=== PATIENT | female | born 1940 | race Hispanic/Latino ===

== ENCOUNTER 2016-07-11 10:01 | Emergency (ER) | payer MEDICARE ==
[2016-07-11 10:02] VITALS: BMI 22.4
[2016-07-11 10:19] VITALS: PULSE 74; TEMP 98
--- NOTE | 2016-07-11 10:42 | ED PDOC ---
Arrival/HPI - General Chief Complaint: Female Genitourinary Time Seen by Provider: 07/11/16 10:30 Historian: Patient - History of Present Illness Narrative History of Present Illness (Text): 07/11/16 10:35 Sade Salguero is a 75 year old female, whose past medical history includes blood clots, DVT, Crohn's diseae, and a partial hysterectomy, who presents to the emergency department complaining of blood in urine this morning. Patient called PMD and spoke to Dr. Del Cid who told her to come to emergency department for evaluation. Patient notes that she had an INR on 12 days ago (13 of every month) which was normal except for low vitamin D. Patient denies any burning or pain during urination, or any other complaint at this time. PMD: Dr. Lema Time/Duration: 4-6 hours Symptom Course: Unchanged Activities at Onset: Rest Modifying Factors (Text): None Context: Home Past Medical History - Provider Review Nursing Documentation Reviewed: Yes - Infectious Disease Hx of Infectious Diseases: None - Tetanus Immunization Tetanus Immunization: Unknown - Reproductive Menopause: Yes - Cardiac Hx Hypertension: Yes - Pulmonary Hx Chronic Obstructive Pulmonary Disease (COPD): Yes - Neurological Hx Paralysis: No - Endocrine/Metabolic Hx Endocrine Disorders: No - Hematological/Oncological Hx Blood Transfusions: No Hx Blood Transfusion Reaction: (N/A) - Integumentary Other/Comment: 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 - Musculoskeletal/Rheumatological Hx Musculoskeletal Disorders: Yes Other/Comment: blood clots on both legs with filter 2009 - Gastrointestinal Hx Crohn's Disease: Yes - Psychiatric Hx Emotional Abuse: No Hx Physical Abuse: No Hx Substance Use: No - Surgical History Hx Cholecystectomy: Yes Hx Hysterectomy: Yes - Anesthesia Hx Anesthesia: Yes Hx Anesthesia Reactions: No Hx Malignant Hyperthermia: No - Suicidal Assessment Feels Threatened In Home Enviroment: No Family/Social History - Physician Review Nursing Documentation Reviewed: Yes Family/Social History: No Known Family HX Smoking Status: Light Smoker < 10 Cigarettes Daily Hx Alcohol Use: No (RARELY) Hx Substance Use: No Hx Substance Use Treatment: No Allergies/Home Meds Allergies/Adverse Reactions: Allergies No Known Allergies Allergy (Verified 07/11/16 10:19) Home Medications: Home Meds Medication Instructions Recorded Confirmed Warfarin [Coumadin] 2 mg PO DAILY 01/03/12 07/11/16 Colesevelam HCl [Welchol] 3 tab PO BID 08/24/14 07/11/16 Irbesartan [Avapro] 150 mg PO QAM 08/24/14 07/11/16 Calcium Carbonate/Vitamin D 1 tab PO DAILY 10/23/15 07/11/16 [Oyster Shell Calcium/Vitamin D 250 MG-125 Iu] Folic Acid 1 mg PO DAILY 10/23/15 07/11/16 Multivitamin [Multivitamins] 1 each PO DAILY 10/23/15 07/11/16 Warfarin [Coumadin] 3 mg PO QOTHERDAY 07/11/16 07/11/16 Review of Systems - Review of Systems Constitutional: absent: Fevers, Night Sweats Eyes: absent: Vision Changes ENT: absent: Hearing Changes Respiratory: absent: SOB Cardiovascular: absent: Chest Pain Gastrointestinal: absent: Abdominal Pain Genitourinary Female: Hematuria Musculoskeletal: absent: Back Pain, Neck Pain Skin: absent: Rash Neurological: absent: Headache, Dizziness Endocrine: absent: Diaphoresis Hemo/Lymphatic: absent: Easy Bleeding Psychiatric: absent: Depression Physical Exam Vital Signs Reviewed: Yes Vital Signs Temp Pulse Resp BP Pulse Ox 07/11/16 10:12 98 F 74 19 131/69 96 Temperature: Afebrile Blood Pressure: Normal Pulse: Regular Respiratory Rate: Normal Appearance: Positive for: Well-Appearing, Non-Toxic, Comfortable Pain Distress: None Mental Status: Positive for: Alert and Oriented X 3 - Systems Exam Head: Present: Atraumatic, Normocephalic Pupils: Present: PERRL Extroacular Muscles: Present: EOMI Conjunctiva: Present: Normal Mouth: Present: Moist Mucous Membranes Neck: Present: Normal Range of Motion Respiratory/Chest: Present: Clear to Auscultation, Good Air Exchange. No: Respiratory Distress, Accessory Muscle Use Cardiovascular: Present: Regular Rate and Rhythm, Normal S1, S2. No: Murmurs Abdomen: Present: Normal Bowel Sounds. No: Tenderness, Distention, Peritoneal Signs Back: Present: Normal Inspection Upper Extremity: Present: Normal Inspection. No: Cyanosis, Edema Lower Extremity: Present: Normal Inspection. No: Edema Neurological: Present: GCS=15, CN II-XII Intact, Speech Normal Skin: Present: Warm, Dry, Normal Color. No: Rashes Psychiatric: Present: Alert, Oriented x 3, Normal Insight, Normal Concentration Medical Decision Making ED Course and Treatment: 07/11/16 10:35 Impression: 75 year old female complaining of hematuria this morning. Differential Diagnosis included but are not limited to: Hematuria, secondary to UTI vs. Coumadin Toxicity Plan: -- Urine Culture, Urinalysis -- Labs -- Reassess and disposition Prior Visits: Notes and results from previous visits were reviewed. Patient last seen in the ED on 12/18/15 for shortness of breath that night. Patient was discharged home. Progress Notes: 07/11/16 11:23 Patient UA noted with Nitrate+ and Leuks. WBC normal. Considering hematuria will tx for uncomplicated cystitis with Keflex. INR level reviewed. Patient needs to follow up with her primary care doctor in 2-3days. Advised to return to the ED if symptoms worsen or any other concern. - Lab Interpretations Lab Results: 07/11/16 10:40 07/11/16 10:40 Lab Results 07/11/16 10:40: WBC 8.2, RBC 4.44, Hgb 14.4, Hct 42.1, MCV 94.8, MCH 32.4, MCHC 34.2, RDW 14.0, Plt Count 166, MPV 11.7 H, Gran % 66.2, Lymph % (Auto) 27.0, [place] % (Auto) 5.9, Eos % (Auto) 0.7 L, Baso % (Auto) 0.2, Gran # 5.43, Lymph # 2.2, [place] # 0.5, Eos # 0.1, Baso # 0.02, PT 20.8 H, INR 1.93 H, APTT 34.1 H, Sodium 139, Potassium 4.0, Chloride 103, Carbon Dioxide 27, Anion Gap 13, BUN 13 , Creatinine 0.7, Est GFR ( Amer) > 60, Est GFR (Non-Af Amer) > 60, Random Glucose 97, Calcium 9.8 07/11/16 10:30: Urine Color Yellow, Urine Appearance Slight-cloudy, Urine pH 6.0 , Ur Specific [place] 1.015, Urine Protein Negative, Urine Glucose (UA) Negative , Urine Ketones Negative, Urine Blood Large H, Urine Nitrate Positive H, Urine Bilirubin Negative, Urine Urobilinogen 0.2, Ur Leukocyte Esterase Small H, Urine RBC Tntc, Urine WBC 0 - 2, Ur Epithelial Cells 0 - 2, Urine Bacteria Mod I have reviewed the lab results: Yes Interpretation: Abnormal lab values (INR 1.93 on coumadin; UTI with blood, nitrates, and leuk) - Medication Orders Current Medication Orders: Discontinued Medications Cephalexin Monohydrate (Keflex) 500 mg PO STAT STA PRN Reason: Protocol Stop: 07/11/16 11:20 - Scribe Statement The provider has reviewed the documentation as recorded by the Bryon Erazo Provider Scribe Attestation: All medical record entries made by the Scribe were at my direction and personally dictated by me. I have reviewed the chart and agree that the record accurately reflects my personal performance of the history, physical exam, medical decision making, and the department course for this patient. I have also personally directed, reviewed, and agree with the discharge instructions and disposition. Disposition/Present on Arrival - Present on Arrival Any Indicators Present on Arrival: No History of DVT/PE: No History of Uncontrolled Diabetes: No Urinary Catheter: No History of Decub. Ulcer: No History Surgical Site Infection Following: None - Disposition Have Diagnosis and Disposition been Completed?: Yes Diagnosis: Hematuria Disposition: HOME/ ROUTINE Disposition Time: 11:25 Patient Plan: Discharge Patient Problems: Current Active Problems Problem Status Diagnosed Hematuria Acute Condition: IMPROVED Discharge Instructions (ExitCare): Acute Hematuria (DC) Additional Instructions: Ms. Salguero, thank you for letting us take care of you today. Your provider was Dr. Montes You were treated for Hematuria. The emergency medical care you received today was directed at your acute symptoms. If you were prescribed any medication, please fill it and take as directed. It may take several days for your symptoms to resolve. Return to the Emergency Department if your symptoms worsen, do not improve, or if you have any other problems. Please contact your doctor or call one of the physicians/clinics you have been referred to that are listed on the Patient Visit Information form that is included in your discharge packet. Bring any paperwork you were given at discharge with you along with any medications you are taking to your follow up visit. Our treatment cannot replace ongoing medical care by a primary care provider (PCP) outside of the emergency department. Thank you for allowing the [facility] team to be part of your care today. If you had an X-Ray or CT scan: A Radiologist will review the ED reading if any change in treatment is needed we will contact you. If you had a blood, urine, or wound culture: It will take several days for the results, if any change in treatment is needed we will contact you. If you had an STI test: It will take 48 hours for the results. Please call after 1 week if you have not heard back. Prescriptions: Cephalexin [Keflex] 500 mg PO BID #14 capsule Referrals: Christian Lema MD [Primary Care Provider] - Follow up with primary Forms: WORK NOTE
[2016-07-11 10:50] LABS: URINE BILIRUBIN NEGATIVE (NEGATIVE); URINE BLOOD LARGE (NEGATIVE); URINE GLUCOSE (UA) NEGATIVE (NEGATIVE); URINE KETONE NEGATIVE (NEGATIVE); URINE LEUKOCYTE ESTERASE SMALL Leu/uL (NEGATIVE); URINE PROTEIN NEGATIVE mg/dL (<30 mg/dL); URINE UROBILINOGEN 0.2 E.U./dL (<1 E.U./dL)
[2016-07-11 10:51] LABS: ADD MANUAL DIFF? NO
[2016-07-11 10:53] LABS: URINE APPEARANCE SLIGHT-CLOUDY (CLEAR); URINE COLOR YELLOW (YELLOW)
[2016-07-11 11:00] LABS: URINE EPITHELIAL CELLS 0 - 2 /hpf (0-5); URINE RBC TNTC /hpf (0-2); URINE WBC 0 - 2 /hpf (0-6)
[2016-07-11 11:01] LABS: URINE BACTERIA MOD (NEG)
[2016-07-11 11:03] LABS: BASO # 0.02 [, K/mm3] (0.0-2.0); BASO % 0.2 % (0.0-3.0); EOS # 0.1 (0.0-0.7); EOS % 0.7 % (1.5-5.0); GRAN # 5.43 (1.4-6.5); GRAN % 66.2 % (50.0-68.0); HEMATOCRIT 42.1 % (36.0-48.0); LYMPH # 2.2 (1.2-3.4); MEAN CELL VOLUME 94.8 fL (80.0-105.0); MEAN CORPUSCULAR HEMOGLOBIN 32.4 pg (25.0-35.0); MEAN CORPUSCULAR HGB CONC 34.2 g/dl (31.0-37.0); MEAN PLATELET VOLUME 11.7 fl (7.0-11.0); MONO # 0.5 (0.1-0.6); MONO % 5.9 % (1.0-6.0); PLATELET COUNT 166 [, 10^3/uL] (120.0-450.0); WHITE BLOOD COUNT 8.2 [, 10^3/ul] (4.5-11.0)
[2016-07-11 11:13] LABS: BLOOD UREA NITROGEN 13 mg/dL (7-21); CALCIUM 9.8 mg/dL (8.4-10.5); CARBON DIOXIDE 27 mmol/L (21-33); CHLORIDE 103 mmol/L (98-107); GFR AFRICAN-AMERICAN > 60; GLUCOSE,RANDOM 97 mg/dL (70-110); SODIUM 139 mmol/L (132-148)
[2016-07-11 11:14] LABS: INR 1.93 (0.93-1.08); PARTIAL THROMBOPLASTIN TIME 34.1 Seconds (23.7-30.8)
[2016-07-11 11:58] VITALS: BP 153/77; RESP 18; O2SAT 98
== END 2016-07-11 12:00 | disposition home or self-care (01) ==
LOC: ED 10:01
DX: R31.9 Hematuria, unspecified (principal); I10 Essential (primary) hypertension; Z86.718 Personal history of other venous thrombosis and embolism; Z72.0 Tobacco use

== ENCOUNTER 2016-09-15 08:56 | Day surgery (SDC) | payer MEDICARE ==
[2016-09-15 09:44] VITALS: RESP 18
[2016-09-15] MEDS ORDERED: Propofol 10 mg/ml Inj (20 ML) ONE (11:45)
[2016-09-15] MEDS ORDERED: Midazolam 2 MG/2 ML VIAL ONE (11:45)
[2016-09-15] MEDS ORDERED: Iohexol 240 (50 ml) ONE (11:48)
[2016-09-15] MEDS ORDERED: cefTRIAXone (Rocephin) 1 gm Inj ONE (11:51)
[2016-09-15] MEDS ORDERED: Sevoflurane - Inhalation Anesthetic Liq (250 ml) ONE (11:56)
[2016-09-15] MEDS ORDERED: Glycopyrrolate 0.2 mg/ml (2ml vial) ONE (12:11)
[2016-09-15] MEDS ORDERED: Neostigmine Methylsulfate 3mg/3ml Syringe IV ONE (12:11)
[2016-09-15] MEDS ORDERED: Lactated Ringer's 1,000 ML IV SCH (12:42)
[2016-09-15 13:16] VITALS: O2SAT 96
--- NOTE | 2016-09-15 13:23 | OP ---
PROCEDURE DATE: 09/15/2016 PREOPERATIVE DIAGNOSIS: Distal right ureteral calculus. POSTOPERATIVE DIAGNOSIS: Distal right ureteral calculus. PROCEDURE: Cystoscopy, right retrograde ureteropyelogram, right ureteroscopy with laser lithotripsy, insertion of right pigtail stent. SURGEON: Kalen Oliva M.D. ANESTHESIA: General endotracheal. DESCRIPTION OF OPERATION: After adequate general endotracheal anesthesia was given, the patient was placed in lithotomy, prepped and draped in the usual manner. A 22[place] cystourethroscope was intro duced under vision. The bladder showed no tumors, foreign bodies, or visible stones. She had some c ystitis cystica on the lining. ____ was obtained for culture and cytology. An acorn-tipped catheter was placed at the opening of the right ureteral orifice. Ureteropyelogram was carried out. There w as a filling defect in the distal ureter corresponding to the stone. The upper ureter had some kinki ng, but no filling defects were seen. At this point, the tip catheter was removed and an 0.035 Senso r wire was advanced up the right ureter easily up into the kidney. All of the contrast instilled was allowed to egress to empty the collecting system before the start of the ureteroscopy. The cystosco pe was removed. A 6-[place] short right semi-rigid ureteroscope was then introduced under direct visi on without the need for dilating the orifice. Just beyond the intramural portion of the ureter, the stone was seen. Using holmium laser at a setting of 6 and 6, it was fragmented into small pieces whi ch egressed out the orifice. Inspection of the rest of the ureter going up to the upper ureter was a ll normal. The ureteroscope was removed under vision. The ureter was fine. The cystoscope was rein troduced after backloading the Sensor wire on to the cystoscope and a 6-[place] 26 cm pigtail stent wa s advanced up the right ureter under fluoroscopic guidance. When properly placed, it coiled nicely i n the right renal pelvis and in the bladder. The bladder was drained. The cystoscope was removed. The patient was awakened and brought to recovery room in good condition. Kalen Oliva MD cc: [phone] TT: 09/15/2016 13:22:45 sn
[2016-09-15 13:52] VITALS: BMI 22.4
[2016-09-15 15:01] VITALS: BP 136/66; PULSE 70; TEMP 98
--- NOTE | 2016-09-15 15:03 | RAD ---
PROCEDURE: Fluoroscopy up to 1 hour HISTORY: RETROGRADE PYELOGRAM/LASER LITHOTRIPSY/STENT INSERTION (RIGHT) COMPARISON: TECHNIQUE: Fluoroscopy was provided in the operating room. 1 minutes and 43 seconds of fluoroscopy time were utilized. 11 images were obtained. FINDINGS: There is an irregular filling defect in the renal pelvis which could represent a clot. There is placement of a right ureteral stent. Procedure was performed by Dr. Oliva IMPRESSION: As above
== END 2016-09-15 14:55 | disposition home or self-care (01) ==
LOC: SDS 08:56
PROVIDERS: ATTEND Urology
DX: N20.1 Calculus of ureter (principal); I10 Essential (primary) hypertension; J43.9 Emphysema, unspecified; Z90.722 Acquired absence of ovaries, bilateral; K50.90 Crohn's disease, unspecified, without complications; B96.20 Unspecified Escherichia coli [E. coli] as the cause of diseases classified elsewhere
CPT/HCPCS: 36415; 52356; 76000; 85610; 87086; 88108; C1758; C2625; J0696; J2001; J2250; J2405; J2704; J2710; J3010; J7120 ×2; Q9966

== ENCOUNTER 2017-11-23 07:28 | Inpatient (IN) | payer MEDICARE ==
[2017-11-23 07:53] VITALS: BMI 22.6
--- NOTE | 2017-11-23 08:11 | ED PDOC ---
Arrival/HPI - General Chief Complaint: Dizziness/Lightheaded Time Seen by Provider: 11/23/17 07:30 Historian: Patient - History of Present Illness Narrative History of Present Illness (Text): 11/23/17 08:04 75 year old female, with a past medical history that includes DVTs on Coumadin, Crohn's diseae, and a partial hysterectomy, presents to the emergency department with dizziness and shortness of breath, for one week. Patient states that she feels the room spinning upon standing, and generalized faintness and dizziness while walking. Patient states she had episodes of vomiting about 10 days prior, which have resolved. Patient reports sensation of shortness of breath over past several days as well. Denies hemoptysis. Denies bloody or dark urine or stool. PMD: Dr. Lema 11/23/17 14:11 Time/Duration: 1 week Symptom Onset: Gradual Symptom Course: Unchanged Activities at Onset: Light Context: Standing (Dizziness upon standing), Home Past Medical History - Provider Review Nursing Documentation Reviewed: Yes - Infectious Disease Hx of Infectious Diseases: None - Tetanus Immunization Tetanus Immunization: Unknown - Reproductive Menopause: Yes - Cardiac Hx Pacemaker: No - Pulmonary Hx Chronic Obstructive Pulmonary Disease (COPD): Yes - Neurological Hx Paralysis: No - Endocrine/Metabolic Hx Endocrine Disorders: No - Hematological/Oncological Hx Blood Transfusions: No Hx Blood Transfusion Reaction: (N/A) - Integumentary Other/Comment: 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 - Musculoskeletal/Rheumatological Hx Musculoskeletal Disorders: Yes - Gastrointestinal Hx Crohn's Disease: Yes - Psychiatric Hx Emotional Abuse: No Hx Physical Abuse: No Hx Substance Use: No - Surgical History Hx Cholecystectomy: Yes Hx Hysterectomy: Yes - Anesthesia Hx Anesthesia Reactions: No Hx Malignant Hyperthermia: No - Suicidal Assessment Feels Threatened In Home Enviroment: No Family/Social History - Physician Review Nursing Documentation Reviewed: Yes Family/Social History: Neoplasm/Cancer Smoking Status: Light Smoker < 10 Cigarettes Daily Hx Alcohol Use: No (RARELY) Hx Substance Use: No Hx Substance Use Treatment: No Allergies/Home Meds Allergies/Adverse Reactions: Allergies No Known Allergies Allergy (Verified 11/23/17 07:42) Home Medications: Home Meds Medication Instructions Recorded Confirmed Warfarin [Coumadin] 2 mg PO DAILY 01/03/12 11/23/17 Colesevelam HCl [Welchol] 3 tab PO BID 08/24/14 11/23/17 Calcium Carbonate/Vitamin D 1 tab PO DAILY 10/23/15 11/23/17 [Oyster Shell Calcium/Vitamin D 250 MG-125 Iu] Folic Acid 1 mg PO DAILY 10/23/15 11/23/17 Multivitamin [Multivitamins] 1 cap PO DAILY 10/23/15 11/23/17 Warfarin [Coumadin] 3 mg PO Q2XW 07/11/16 11/23/17 Losartan [Cozaar] 50 mg PO DAILY 09/01/16 11/23/17 Review of Systems - Review of Systems Constitutional: Fatigue. absent: Fevers Eyes: absent: Vision Changes ENT: Rhinorrhea. absent: Hearing Changes Respiratory: SOB. absent: Cough, Wheezing Cardiovascular: MCKAY. absent: Chest Pain, Palpitations, Edema, Calf Pain Gastrointestinal: absent: Abdominal Pain Genitourinary Female: absent: Dysuria Musculoskeletal: absent: Back Pain, Neck Pain Skin: absent: Rash Neurological: Dizziness. absent: Focal Weakness, Gait Changes Physical Exam - Physical Exam Narrative Physical Exam (Text): Head: Atraumatic. Normocephalic. Eyes: PERRL. EOMI. Conjunctivae are not pale. ENT: Mucous membranes are moist and intact. Oropharynx is clear and symmetric. Neck: Supple. Full ROM. No JVD. No lymphadenopathy. Cardiovascular: Regular rate. Regular rhythm. No murmurs, rubs, or gallops. Distal pulses are 2+ and symmetric. Pulmonary/Chest: No evidence of respiratory distress. Clear to auscultation bilaterally. No wheezing, rales or rhonchi. Nontender to palpation. Abdominal: Soft and non-distended. There is no tenderness. No rebound, guarding, or rigidity. No organomegaly. Good bowel sounds. Back: No CVA tenderness. Extremities: No edema. No cyanosis. No clubbing. Full range of motion in all extremities. No calf tenderness. Skin: No petechiae or purpuara. clarisa noted to right trunk and upper extremity, no acute change. No cellulitis. Neurological: Alert, awake, and oriented. Motor and sensory exam intact. Psychiatric: Good eye contact. Normal interaction, affect, and behavior. Vital Signs Reviewed: Yes Vital Signs Temp Pulse Pulse Resp BP Pulse Ox 11/23/17 14:40 98.6 F 64 18 133/71 95 11/23/17 14:09 97.8 F 68 68 18 140/80 11/23/17 11:21 68 18 140/80 97 11/23/17 10:27 67 16 149/58 L 98 11/23/17 07:48 97.8 F 77 16 132/82 97 Temperature: Afebrile Pulse: Regular Respiratory Rate: Normal Appearance: Positive for: Non-Toxic Pain Distress: Mild Mental Status: Positive for: Alert and Oriented X 3 Medical Decision Making ED Course and Treatment: 11/23/17 08:04 Impression: 75 year old female, presents to the emergency department with dizziness and shortness of breath, since one week. Plan: -- EKG -- Labs -- Chest X-ray -- Urinalysis -- Reassess and disposition Prior Visits: Notes and results from previous visits were reviewed. Patient was last seen in the emergency department on 07/11/16 with Hematuria. Patient was discharged with medication. Progress Notes: Patient reports symptoms gradually progressive for past several days. She does not appear to be in respiratory distress, with no hypoxia, although complains of some shortness of breath. Patient's cxr reveals possible right lung mass. Patient on re-examination was informed of abnormal cxr findings. She takes coumadin. INR therapeutic. No pleuritic pain. CT angio chest ordered. Lung mass noted which I reviewed with patient and family. Patient will be admitted for evaluation of symptoms associated with abnormal ct findings. She is neurologically intact with no facial droop or focal weakness noted. No meningeal signs. CV stable. Symptoms not worse with head movements. - Lab Interpretations Lab Results: 11/23/17 08:10 11/23/17 08:10 Lab Results 11/23/17 08:10: Sodium 139, Potassium 4.0, Chloride 106, Carbon Dioxide 27, Anion Gap 10, BUN 12, Creatinine 0.7, Est GFR ( Amer) > 60, Est GFR (Non- Af Amer) > 60, Random Glucose 98, Calcium 9.4, Total Bilirubin 0.4, AST 25, ALT 25, Alkaline Phosphatase 103, Lactate Dehydrogenase 467, Total Creatine Kinase 36, Troponin I 0.01, NT-Pro-B Natriuret Pep 226, Total Protein 7.4, Albumin 4.0 , Globulin 3.4, Albumin/Globulin Ratio 1.2 11/23/17 08:10: PT 33.5 H, INR 2.85, APTT 39.3 H 11/23/17 08:10: WBC 7.3, RBC 4.06, Hgb 12.4, Hct 37.1, MCV 91.4, MCH 30.5, MCHC 33.4, RDW 13.5, Plt Count 190, MPV 10.9, Gran % 68.6 H, Lymph % (Auto) 23.3, [place] % (Auto) 7.0 H, Eos % (Auto) 0.8 L, Baso % (Auto) 0.3, Gran # 5.02, Lymph # (Auto) 1.7, [place] # (Auto) 0.5, Eos # (Auto) 0.1, Baso # (Auto) 0.02 11/23/17 08:01: Urine Color Yellow, Urine Appearance Clear, Urine pH 6.0, Ur Specific [place] 1.015, Urine Protein Negative, Urine Glucose (UA) Negative, Urine Ketones Negative, Urine Blood Moderate H, Urine Nitrate Negative, Urine Bilirubin Negative, Urine Urobilinogen 0.2, Ur Leukocyte Esterase Trace H, Urine RBC 10 - 15, Urine WBC 2 - 5, Ur Epithelial Cells 4 - 5, Urine Bacteria Mod - RAD Interpretation Radiology Orders: 11/23/17 08:01 CHEST PORTABLE [RAD] Stat 11/23/17 09:32 ANGIO CHEST PE PROTOCOL [CT] Stat 11/23/17 10:05 HEAD W/CONTRAST [CT] Stat Head CT reviewed by radiologist, shows: no acute findings Dr. Liz Haq 11/23/17 10:[address] reviewed by radiologist, shows: There is a 3.2 cm mass in the superior segment of the right lower lobe. This has spiculated borders. This is consistent with a lung malignancy. There is no associated mediastinal or hilar adenopathy. There is no invasion of the chest wall. No evidence of pulmonary embolus. Dr. Liz Haq 11/23/17 10:45 Chest X-ray reviewed by radiologist, shows: There is a mass in the right lung which may be in the superior segment of the lower lobe or the inferior aspect of the upper lobe. This measures 26 X 33mm. This is suspicious for a neoplastic lesion. Dr. Liz Haq 11/23/17 10:06 Construction Inspector: Radiologist - EKG Interpretation EKG Interpretation (Text): 11/23/17 15:52 EKG at 0743 normal sinus rhythm rate of [address] abnormality Interpreted by ED Physician: Yes Type: 12 lead EKG - Medication Orders Current Medication Orders: Albuterol/Ipratropium (Duoneb 3 Mg/0.5 Mg (3 Ml) Ud) 3 ml IH Q2H PRN PRN Reason: Shortness of Breath Albuterol/Ipratropium (Duoneb 3 Mg/0.5 Mg (3 Ml) Ud) 3 ml IH [id number] MYNOR Arformoterol Tartrate (Brovana) 15 mcg IH [id number] MYNOR Budesonide (Pulmicort Respules) 0.25 mg IH [id number] MYNOR Calcium/Vitamin D (Oscal-D 250 Mg-125 Units Tab) 1 tab PO DAILY MYNOR Folic Acid (Folic Acid) 1 mg PO DAILY MYNOR Losartan Potassium (Cozaar) 50 mg PO DAILY MYNOR Multivitamins (Thera Tab) 1 tab PO DAILY MYNOR Nicotine (Nicoderm Cq) 1 patch TD DAILY MYNOR Non-Formulary Medication (Colesevelam Hcl [Welchol]) 3 tab PO BID MYNOR Pantoprazole Sodium (Protonix Ec Tab) 40 mg PO 0600 MYNOR Discontinued Medications Pneumococcal Polyvalent Vaccine (Pneumovax 23 Vaccine) 0.5 ml IM .ONCE ONE Stop: 11/23/17 14:24 - Scribe Statement The provider has reviewed the documentation as recorded by the Scribe Isidro Flor All medical record entries made by the Scribe were at my direction and personally dictated by me. I have reviewed the chart and agree that the record accurately reflects my personal performance of the history, physical exam, medical decision making, and the department course for this patient. I have also personally directed, reviewed, and agree with the discharge instructions and disposition. Disposition/Present on Arrival - Present on Arrival Any Indicators Present on Arrival: No History of DVT/PE: No History of Uncontrolled Diabetes: No Urinary Catheter: No History of Decub. Ulcer: No History Surgical Site Infection Following: None - Disposition Have Diagnosis and Disposition been Completed?: Yes Diagnosis: Lung mass, Dizziness Disposition: HOSPITALIZED Disposition Time: 09:45 Patient Plan: Admission Patient Problems: Current Active Problems Problem Status Onset Dizziness Acute Lung mass Acute Condition: FAIR
[2017-11-23 08:20] LABS: BASO # 0.02 K/mm3 (0.0-2.0); BASO % 0.3 % (0.0-3.0); EOS # 0.1 (0.0-0.7); EOS % 0.8 % (1.5-5.0); GRAN # 5.02 (1.4-6.5); GRAN % 68.6 % (50.0-68.0); HEMOGLOBIN 12.4 g/dL (12.0-16.0); LYMPH # 1.7 (1.2-3.4); LYMPH % 23.3 % (22.0-35.0); MEAN CELL VOLUME 91.4 fl (80.0-105.0); MEAN CORPUSCULAR HEMOGLOBIN 30.5 pg (25.0-35.0); MEAN CORPUSCULAR HGB CONC 33.4 g/dl (31.0-37.0); MEAN PLATELET VOLUME 10.9 fl (7.0-11.0); MONO # 0.5 (0.1-0.6); RBC 4.06 10^6/uL (3.5-6.1); RED CELL DISTRIBUTION WIDTH 13.5 % (11.5-14.5); WHITE BLOOD COUNT 7.3 10^3/ul (4.5-11.0)
[2017-11-23 08:22] LABS: INR 2.85; PROTHROMBIN TIME 33.5 SECONDS (9.4-12.5)
[2017-11-23 08:25] LABS: PARTIAL THROMBOPLASTIN TIME 39.3 Seconds (25.1-36.5)
[2017-11-23 08:32] LABS: ALB/GLOB RATIO 1.2 (1.1-1.8); ALT/SGPT 25 U/L (7-56); AST/SGOT 25 U/L (14-36); BLOOD UREA NITROGEN 12 mg/dL (7-21); CALCIUM 9.4 mg/dL (8.4-10.5); GFR AFRICAN-AMERICAN > 60; GFR NON-AFRICAN AMERICAN > 60
[2017-11-23 08:57] LABS: B-TYPE NATRIURETIC PEPTIDE 226 pg/mL (0-450); TROPONIN I 0.01 ng/mL
[2017-11-23 09:27] LABS: URINE BILIRUBIN NEGATIVE (NEGATIVE); URINE BLOOD MODERATE (NEGATIVE); URINE GLUCOSE (UA) NEGATIVE (NEGATIVE); URINE LEUKOCYTE ESTERASE TRACE Leu/uL (NEGATIVE); URINE PROTEIN NEGATIVE mg/dL (<30 mg/dL); URINE UROBILINOGEN 0.2 E.U./dL (<1 E.U./dL)
[2017-11-23 09:30] LABS: URINE APPEARANCE CLEAR (CLEAR); URINE COLOR YELLOW (YELLOW)
[2017-11-23 09:34] LABS: URINE BACTERIA MOD (NEG)
[2017-11-23] MEDS ORDERED: Iohexol 350 MG/100 ML VIAL ONE (09:43)
--- NOTE | 2017-11-23 10:07 | RAD ---
Date of service: 11/23/2017 HISTORY: sob COMPARISON: CT 09/01/2016 and chest 09/01/2016 FINDINGS: LUNGS: There is a mass in the right lung which may be in the superior segment of the lower lobe or the inferior aspect of the upper lobe. This measures 26 x 33 mm. This is suspicious for neoplastic lesion. Follow-up CT is recommended PLEURA: No significant pleural effusion identified, no pneumothorax apparent. CARDIOVASCULAR: Normal. OSSEOUS STRUCTURES: No significant abnormalities. VISUALIZED UPPER ABDOMEN: Normal. OTHER FINDINGS: None. IMPRESSION: There is a mass in the right lung which may be in the superior segment of the lower lobe or the inferior aspect of the upper lobe. This measures 26 x 33 mm. This is suspicious for neoplastic lesion.
--- NOTE | 2017-11-23 10:42 | CT ---
Date of service: 11/23/2017 PROCEDURE: CT HEAD WITH CONTRAST HISTORY: dizzy COMPARISON: None available. TECHNIQUE: Axial computed tomography images were obtained through the head/brain with intravenous contrast. Contrast dose: 100 cc of Omni 350 Radiation dose: Total exam DLP = 730 mGy-cm. This CT exam was performed using one or more of the following dose reduction techniques: Automated exposure control, adjustment of the mA and/or kV according to patient size, and/or use of iterative reconstruction technique. FINDINGS: HEMORRHAGE: No intracranial hemorrhage. BRAIN: No mass, mass effect or edema. No abnormal intracranial enhancement. No atrophy or chronic microvascular ischemic changes. VENTRICLES: Unremarkable. No hydrocephalus. CALVARIUM: Unremarkable. PARANASAL SINUSES: Unremarkable as visualized. No significant inflammatory changes. MASTOID AIR CELLS: Unremarkable as visualized. No mastoid effusion. OTHER FINDINGS: None. IMPRESSION: No acute findings
--- NOTE | 2017-11-23 10:46 | CT ---
Date of service: 11/23/2017 PROCEDURE: CT Chest with contrast (Pulmonary Angiogram) HISTORY: r/o PE COMPARISON: None available. TECHNIQUE: Axial computed tomography images were obtained of the chest in the pulmonary arterial phase of enhancement. Coronal and sagittal reformatted images were created and reviewed. Intravenous contrast dose: 100 cc of Omni 350 Radiation dose: Total exam DLP = 176 mGy-cm. This CT exam was performed using one or more of the following dose reduction techniques: Automated exposure control, adjustment of the mA and/or kV according to patient size, and/or use of iterative reconstruction technique. FINDINGS: PULMONARY ARTERIES: Unremarkable. No pulmonary embolism. AORTA: No acute findings. No thoracic aortic aneurysm. LUNGS: There is a 3.2 cm mass in the superior segment of the right lower lobe. This has spiculated borders. This is consistent with a lung malignancy. There is no associated mediastinal or hilar adenopathy. There is no invasion of the chest wall PLEURAL SPACES: Unremarkable. No effusion or pneumothorax. HEART: Unremarkable. No cardiomegaly. No significant pericardial effusion. LYMPH NODES: No lymphadenopathy. BONES, CHEST WALL: Unremarkable. No fracture or destructive lesion OTHER FINDINGS: Unremarkable. IMPRESSION: There is a 3.2 cm mass in the superior segment of the right lower lobe. This has spiculated borders. This is consistent with a lung malignancy. There is no associated mediastinal or hilar adenopathy. There is no invasion of the chest wall No evidence of pulmonary embolus
[2017-11-23] MEDS ORDERED: Albuterol-Ipratrop 3 mg / 0.5 (3 ml) UD IH PRN (12:03)
[2017-11-23] MEDS ORDERED: Pneumococcal 23-Valent Vaccine IM ONE (14:23)
--- NOTE | 2017-11-23 14:29 | CP.PCM.HP ---
<Gallito Daniels - Last Filed: 11/23/17 14:22> History of Present Illness - History of Present Illness History of Present Illness: Gallito Daniels, PGY-1 History and Physical for Hospitalist Service Ms. Salguero is a 77 F w PMHx DVT, COPD, Crohns disease, and HTN, presenting today for evaluation of waxing and waning lightheadedness and dyspnea. The pt states that symptoms started October 06, when she decided to stay home from a democrat because she was feeling lightheaded. This happened again today after she woke up and she decided to come in for evaluation. Lightheadedness is worsened by arising and often is worse in hot weather. Bending over provokes lightheadedness , but it also occurs when she is at rest. Patient admits to non productive cough that has been chronic and unchanged over past 2 months. She has not lost consciousness or fallen. Lightheadedness is accompanied by labored breathing that is intermittent. Dyspnea is exertional, especially when she states that she can climb all 26 of the stairs in her house without resting, but has to sit down and rest at the top if shes carrying a basket of laundry. Her last dose of warfarin was yesterday afternoon. She denies any fever, chills, weight loss, loss of appetite, diaphoresis, chest pain, chest pressure/discomfort, wheezing, orthopnea, paroxysmal nocturnal dyspnea, abdominal pain, nausea, vomiting. She denies any new or unexpected weight loss in the last year. She notes some family stress for the past couple years but no acute anxiety. She states that it has been years since shes had an upper respiratory tract infection. Of note, she reports an 8-month history of severe lightheadedness when getting her hair washed at the salon. She states that she cannot extend her head backward into the sink and has to wash her hair at home before she goes to the salon. She can illicit the same lightheadedness by putting her head back in bed. 12-point ROS as per HPI above. Otherwise negative. 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 Mammography 02/09/17 no malignancy, BIRADS 2. Last stress test 07/2011 equivocal. Colonoscopy 10/24/15 showed 3 rectal polyps, scattered diverticula, small external and internal hemorrhoids. Low-dose lung CT 04/26/15 screening significant for panacinar emphysema, R middle lobe scarring noted, no suspicious lymph nodes, negative for malig. Meds: Warfarin, losartan, cholesevalam, Spiriva vitamin D, folic acid, calcium supplementation PSHx: cholecystectomy, bilat ovariectomy w partial myomectomy w partial resection of terminal ileum and partial colectomy w primary end-to-side ileocoloic anastomosis Allergies: NKDA FHx: mother from uterine cancer w mets to lungs, uncle w bone cancer, twin brother had cancer as a and has a stable neck mass for years ( unspecified type) Social: smoker pack per week with long prior history of smoking pack a day x40 years, no alcohol, no other drugs. Lives independently. Drinks a lot of caffeinated tea. Low-residue diet per Crohn's disease. Present on Admission - Present on Admission Any Indicators Present on Admission: Yes History of DVT/PE: Yes Review of Systems - Review of Systems All systems: reviewed and no additional remarkable complaints except (as described in HPI.) Past Patient History - Infectious Disease Hx of Infectious Diseases: None - Tetanus Immunizations Tetanus Immunization: Unknown - Past Social History Smoking Status: Light Smoker < 10 Cigarettes Daily - CARDIAC Hx Pacemaker: No - PULMONARY Hx Chronic Obstructive Pulmonary Disease (COPD): Yes - NEUROLOGICAL Hx Paralysis: No - HEENT Hx HEENT Problems: Yes (eyeglasses) - RENAL Hx Chronic Kidney Disease: Yes Hx Kidney Stones: Yes Other/Comment: r urethral stone, 09/15/16 ureteroscopy w/laser lithotripsy/ insertion of stent/dr evans - ENDOCRINE/METABOLIC Hx Endocrine Disorders: No - HEMATOLOGICAL/ONCOLOGICAL Hx Blood Transfusions: No Hx Blood Transfusion Reaction: (N/A) - INTEGUMENTARY Other/Comment: 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 - MUSCULOSKELETAL/RHEUMATOLOGICAL Hx Musculoskeletal Disorders: Yes - GASTROINTESTINAL Hx Crohn's Disease: Yes - GENITOURINARY/GYNECOLOGICAL Hx Genitourinary Disorders: Yes Hx Hematuria: Yes - PSYCHIATRIC Hx Emotional Abuse: No Hx Physical Abuse: No Hx Substance Use: No - SURGICAL HISTORY Hx Cholecystectomy: Yes Hx Hysterectomy: Yes - ANESTHESIA Hx Anesthesia Reactions: No Hx Malignant Hyperthermia: No Meds Allergies/Adverse Reactions: Allergies Allergy/AdvReac Type Severity Reaction Status Date / Time No Known Allergies Allergy Verified 11/23/17 07:42 Physical Exam - Constitutional Appears: Well, Non-toxic, No Acute Distress - Head Exam Head Exam: ATRAUMATIC, NORMAL INSPECTION, NORMOCEPHALIC Additional comments: actonoc keratosis forehead L of midline - Eye Exam Eye Exam: EOMI, Normal appearance Pupil Exam: PERRL - ENT Exam ENT Exam: Mucous Membranes Moist - Neck Exam Neck exam: Positive for: Normal Inspection. Negative for: Lymphadenopathy, Tenderness - Respiratory Exam Respiratory Exam: Decreased Breath Sounds, Rhonchi (L lower lobe), NORMAL BREATHING PATTERN. absent: Wheezes Additional comments: Transmitted breath sounds present over upper lung valenzuela. Bronchophony noted R lung base - Cardiovascular Exam Cardiovascular Exam: RRR, +S1, +S2 (faint heart sounds) - GI/Abdominal Exam GI & Abdominal Exam: Normal Bowel Sounds, Soft. absent: Distended, Firm, Guarding, Mass, Rebound, Tenderness - Extremities Exam Extremities exam: Positive for: normal capillary refill, normal inspection, pedal pulses present. Negative for: joint swelling, pedal edema - Back Exam Back exam: absent: CVA tenderness (L), CVA tenderness (R), paraspinal tenderness - Neurological Exam Neurological exam: Alert, Oriented x3 - Psychiatric Exam Psychiatric exam: Normal Affect, Normal Mood - Skin Skin Exam: Dry, Intact, Normal Color, Warm Additional comments: Expanisve R sided hemangioma/ clarisa over R chest, R neck and arm extending to dorsum of R hand. Unchanged per patient Results - Vital Signs Recent Vital Signs: Last Vital Signs Temp 97.8 F 11/23/17 07:48 Pulse 68 11/23/17 11:21 Resp 18 11/23/17 11:21 BP 140/80 11/23/17 11:21 Pulse Ox 97 11/23/17 11:21 - Labs Result Diagrams: 11/23/17 08:10 11/23/17 08:10 Assessment & Plan - Assessment and Plan (Free Text) Assessment: Assessment: 77F presenting with 1.5 mo hx of dyspnea and lightheadedness. CT chest revealed a round, 3.2 cm speculated lung mass in RLL adjacent to R posterior chest wall. Noncontrast CT brain demonstrated no acute abnormalities. Patient admitted for workup of shortness of breath and lightheadedness. 1. 3.2 cm R lung mass - concerning for lung vs chest wall malignancy - Low dose CT scan in 05/06: diffuse emphysematous changes. No lymphadenopathy and no evidence of malignancy. LAD calcifications without symptoms - CXR : R lower lung mass - CT chest revealed a round, 3.2 cm speculated lung mass in RLL adjacent to R posterior chest wall. - IR consult Dr. Gabriel placed for lung biopsy once INR appropriate - Hold warfarin for now, INR 2.85 - f/u IR recommendations - Consult pulmonology Dr. Deal - appreciate recommendations 2. Dyspnea 2/2 COPD vs CHF vs PNA - hx of blood clots in legs w IVC filter placed. No PE at that time - CT chest negative for acute PE, PTX, pneumonia. - Afebrile, VSS - ECG unremarkable. Troponin negative - Continue home Brovana, Pulmicort and prn Duonebs 3. Lightheadedness - no nystagmus or vision changes. VSS - no electrolyte abnormalities. Hgb 12.4 without any signs of bleeding. Denies black stools or BRBPR - f/u Orthostatics - encourage oral intake 4. Essential HTN - home losartan held due to association causing orthostatics - will continue to monitor 5. History of Crohn's - continue Welchol home med and low residue diet 6. Tobacco use - Nicotine replacement therapy in hospital - Smoking cessation counseling Diet: low-residue diet for Crohns disease DVT: hold prophylaxis for now pending IR recs and pre-op protocol Patient seen, case reviewed and plan discussed with Dr. Truong. Gallito Daniels, PGY-1 <Salazar Truong - Last Filed: 11/23/17 16:26> Results - Vital Signs Recent Vital Signs: Last Vital Signs Temp 98.6 F 11/23/17 14:48 Pulse 64 11/23/17 14:48 Resp 18 11/23/17 14:48 BP 133/71 11/23/17 14:48 Pulse Ox 95 11/23/17 14:48 - Labs Result Diagrams: 11/23/17 08:10 11/23/17 08:10 Attending/Attestation - Attestation I have personally seen and examined this patient.: Yes I have fully participated in the care of the patient.: Yes I have reviewed all pertinent clinical information: Yes Notes (Text): 11/23/17 16:25 Medical record note made by the resident after discussion with my direction and input after the patient was personally seen and examined by me. I have reviewed the chart and agree that the record accurately reflects by personal performance of the history, physical exam, data review, and medical decision-making, in the course for the patient. I have also personally directed the plan of care. 7 F w PMHx DVT,SP IVC filter on oral anticoagulation with warfarin, Chronic smoking, COPD, Crohns disease, and HTN is admitted with dyspnea on exertion and intermittent dizziness with standing. There is no focal deficit. Patient is not wheezing at this time. CT chest revealed a round, 3.2 cm speculated lung mass in RLL adjacent to R posterior chest wall. Noncontrast CT brain demonstrated no acute abnormalities. We will continue Neb and inhaled steroid.We get Pulmonary and IR consult for biopsy. We will hold warfarin in the anticipation of lung biopsy. We will also check patient orthostatic vitals. Management plan was discussed in detail with patient. Education was provided.
--- NOTE | 2017-11-23 15:34 | CARD ---
APPROVED REPORT Date of service: 11/23/2017 EKG Measurement Heart [id number] <Conclusion> Normal sinus rhythm Moderate voltage criteria for LVH, may be normal variant Nonspecific ST abnormality Abnormal ECG
[2017-11-23] MEDS ORDERED: Phytonadione 10 mg/ml Inj (Adult) SC ONE (17:04)
[2017-11-23] MEDS: Non Formulary Medication (Colesevelam Hcl [Welchol] 3 TAB) PO SCH (18:45)
[2017-11-23] MEDS: Albuterol-Ipratrop 3 mg / 0.5 (3 ml) UD IH SCH (19:34)
[2017-11-23] MEDS: Arformoterol 15 mcg/2 ml Inh Sol IH SCH (19:34)
[2017-11-23] MEDS: Budesonide 0.25 mg/2 ml Inhal Susp UD IH SCH (19:35)
[2017-11-23] MEDS ORDERED: Arformoterol 15 mcg/2 ml Inh Sol IH SCH (20:00)
[2017-11-24] MEDS: Albuterol-Ipratrop 3 mg / 0.5 (3 ml) UD IH SCH ×2 (02:40→08:04)
[2017-11-24] MEDS: Pantoprazole 40 mg EC Tab PO SCH (06:13)
[2017-11-24 07:02] LABS: INR 1.48; PROTHROMBIN TIME 17.1 SECONDS (9.4-12.5)
[2017-11-24 07:05] LABS: PARTIAL THROMBOPLASTIN TIME 32.7 Seconds (25.1-36.5)
[2017-11-24 07:06] LABS: BASO # 0.02 K/mm3 (0.0-2.0); BASO % 0.3 % (0.0-3.0); EOS # 0.1 (0.0-0.7); EOS % 1.2 % (1.5-5.0); GRAN # 5.35 (1.4-6.5); GRAN % 68.8 % (50.0-68.0); LYMPH # 1.8 (1.2-3.4); LYMPH % 23.1 % (22.0-35.0); MEAN CELL VOLUME 90.6 fl (80.0-105.0); MEAN CORPUSCULAR HEMOGLOBIN 30.6 pg (25.0-35.0); MEAN CORPUSCULAR HGB CONC 33.8 g/dl (31.0-37.0); MEAN PLATELET VOLUME 11.5 fl (7.0-11.0); MONO # 0.5 (0.1-0.6); MONO % 6.6 % (1.0-6.0); RBC 4.25 10^6/uL (3.5-6.1); RED CELL DISTRIBUTION WIDTH 13.5 % (11.5-14.5); WHITE BLOOD COUNT 7.8 10^3/ul (4.5-11.0)
[2017-11-24 07:10] LABS: ALB/GLOB RATIO 1.2 (1.1-1.8); ALBUMIN 4.2 g/dL (3.0-4.8); ALT/SGPT 25 U/L (7-56); AST/SGOT 26 U/L (14-36); BLOOD UREA NITROGEN 12 mg/dL (7-21); CALCIUM 9.6 mg/dL (8.4-10.5); GFR AFRICAN-AMERICAN > 60; GFR NON-AFRICAN AMERICAN > 60
--- NOTE | 2017-11-24 07:45 | CON ---
Copied To: Perez Deal MD Attending MD: Perez Dela MD DATE: 11/24/2017 PULMONARY CONSULTATION REASON FOR CONSULTATION: Lung mass. REFERRING PHYSICIAN: Dr. Truong. HISTORY OF PRESENT ILLNESS: The patient is a 77-year-old female, with past medical history significant for chronic obstructive pulmonary disease, positive extensive smoking history - still smokes, deep venous thrombosis in the past (on Coumadin), Crohn disease, hypertension, who presents to [facility] with main complaints of increasing dizziness and weakness for the past two days. The patient denies passing out. She denies headache.. She was, thus, admitted for additional evaluation and treatment. The patient denies shortness of breath at rest. She does state to occasional chronic dyspnea on exertion - mostly when climbing stairs. She also has a chronic cough with occasional sputum production - unchanged recently. There is no history of chest pain, coughing up of blood, or chest pain - made worse with deep respirations. There is no history of temperatures, chills or infectious exposure. There is no history of night sweats, weight loss or appetite change prior to the above events. No history of leg or calf pains. No history of syncope or diaphoresis. No history of recent travel or trauma.. REVIEW OF SYSTEMS: The patient did have an episode of vomiting a few weeks ago. No diarrhea. No abdominal pain. No acute urinary symptoms. No new musculoskeletal complaints. Rest of the review of systems is negative. ALLERGIES: THERE ARE NO KNOWN ALLERGIES. SOCIAL HISTORY: Positive for extensive tobacco usage - still smokes, no alcohol. FAMILY HISTORY: No inheritable diseases. HOME MEDICATIONS: Include Coumadin, multivitamins, Cozaar, Welchol and calcium. PHYSICAL EXAMINATION: GENERAL: The patient appears comfortable at rest. She is not short of breath. VITAL SIGNS: Temperature is 97.6, pulse 64, respirations 18, blood pressure 104/68. Oxygen saturation on room air is 98%. HEENT: Normocephalic, atraumatic. No JVD. CARDIOVASCULAR: Positive S1, S2. No S3 gallop. LUNGS: Decreased breath sounds at the bases. Minimal rhonchi. No wheezing. EXTREMITIES: No clubbing, cyanosis or edema. Calves are nontender to palpation. GI: Abdomen is soft, nontender and nondistended. Bowel sounds are positive. SKIN: Reveals multiple hemangiomas on the upper trunk and right arm. NEUROLOGIC: Exam limited at the present time. PERTINENT LABORATORY DATA: CAT scan of the chest was done on 11/23/2017 and reviewed. There is a peripheral right lower lobe lung mass with spiculated borders.. The lung mass is adjacent to the chest wall. There is no mediastinal or hilar adenopathy. CBC: White count 7.3K, hemoglobin 12.4, hematocrit 37.1, platelets of 190,000. Complete metabolic profile: All values within normal limits. INR 2.85. IMPRESSION: 1. Dizziness, weakness. 2. Right lower lobe lung mass. 3. Chronic obstructive pulmonary disease. 4. History is history of deep venous thrombosis. PLAN: The patient presents to [facility] with main complaints of increasing dizziness and weakness for the past two days. She did state to having these symptoms before, but certainly not to the extent that she has experienced these symptoms for the past two days. She was thus admitted for additional evaluation and treatment. I did review the CAT scan of the chest - noted above. There is a peripheral right lower lobe lung mass with spiculated borders. Important to note, there is no hilar or mediastinal adenopathy at this point in time. Certainly, the lung mass is concerning for a malignancy. Dr. Isidro Gabriel (Interventional Radiology) has been called on the case for a CAT scan guided lung biopsy. On physical exam, there is only minimal bronchospasm noted. In addition, there is no significant alveolar-arterial gradient. Oxygen saturation on room air is 98%. I will continue with the current nebulizer treatments and inhaled steroids for now. Repeat morning labs are pending. The patient does feel better this morning ,and is clinically improved. Additional pulmonary intervention will be based on the above results, as well as the clinical status of the patient. I will discuss the above with the Medical team this morning. Thank you very much for this pulmonary consultation. Perez Deal MD MTDGianni
[2017-11-24] MEDS: Arformoterol 15 mcg/2 ml Inh Sol IH SCH ×2 (08:04→19:27)
[2017-11-24] MEDS: Budesonide 0.25 mg/2 ml Inhal Susp UD IH SCH ×2 (08:04→19:27)
[2017-11-24] MEDS: Non Formulary Medication (Colesevelam Hcl [Welchol] 3 TAB) PO SCH ×2 (09:53→17:52)
[2017-11-24] MEDS: Calcium-Vit D 250 mg-125 Units Tab UD PO SCH (10:48)
[2017-11-24] MEDS: Multivitamin Therapeutic Tab PO SCH (10:48)
--- NOTE | 2017-11-24 12:57 | CP.PCM.PN ---
<Khris Adamson - Last Filed: 11/24/17 12:50> Subjective - Date & Time of Evaluation Date of Evaluation: 11/24/17 Time of Evaluation: 09:20 - Subjective Subjective: Medicine Progress Note: Patient seen an examined at bedside with sister, Bettina, present on day two of her hospitalization. No acute events overnight. Patient endorses that she experienced nausea and restlessness after her scheduled nebulizer treatments. She denies any fevers, chills, dizziness, lightheadedness, headache, chest pain , palpitations, leg swelling, SOB, cough, wheezing, hemoptysis, abdominal pain, N/V/D/C, changes in urine output, skin changes or any numbness/tingling/ weakness of any extremity. Objective - Vital Signs/Intake and Output Vital Signs (last 24 hours): Temp Pulse Resp BP Pulse Ox 97.6 F 65 18 133/70 96 11/24/17 08:37 11/24/17 10:47 11/24/17 08:37 11/24/17 10:47 11/24/17 08:37 Intake and Output: 11/24/17 11/24/17 06:59 18:59 Intake Total 720 Balance 720 - Medications Medications: Current Medications Albuterol/Ipratropium (Duoneb 3 Mg/0.5 Mg (3 Ml) Ud) 3 ml IH Q2H PRN PRN Reason: Shortness of Breath Arformoterol Tartrate (Brovana) 15 mcg IH [id number] [facility] Last Admin: 11/24/17 08:04 Dose: 15 mcg Budesonide (Pulmicort Respules) 0.25 mg IH [id number] [facility] Last Admin: 11/24/17 08:04 Dose: 0.25 mg Calcium/Vitamin D (Oscal-D 250 Mg-125 Units Tab) 1 tab PO DAILY [facility] Last Admin: 11/24/17 10:48 Dose: 1 tab Folic Acid (Folic Acid) 1 mg PO DAILY [facility] Last Admin: 11/24/17 10:48 Dose: 1 mg Losartan Potassium (Cozaar) 25 mg PO DAILY [facility] Multivitamins (Thera Tab) 1 tab PO DAILY [facility] Last Admin: 11/24/17 10:48 Dose: 1 tab Nicotine (Nicoderm Cq) 1 patch TD DAILY [facility] Last Admin: 11/24/17 10:53 Dose: Not Given Non-Formulary Medication (Colesevelam Hcl [Welchol]) 3 tab PO BID [facility] Last Admin: 11/24/17 09:53 Dose: Not Given Pantoprazole Sodium (Protonix Ec Tab) 40 mg PO 0600 [facility] Last Admin: 11/24/17 06:13 Dose: 40 mg - Labs Labs: 11/24/17 06:30 11/24/17 06:30 PT 17.1 SECONDS (9.4-12.5) H 11/24/17 06:30 INR 1.48 11/24/17 06:30 APTT 32.7 Seconds (25.1-36.5) 11/24/17 06:30 - Constitutional Appears: Well, No Acute Distress - Head Exam Head Exam: ATRAUMATIC, NORMAL INSPECTION, NORMOCEPHALIC - Eye Exam Eye Exam: EOMI, Normal appearance. absent: Nystagmus, Scleral icterus - ENT Exam ENT Exam: Mucous Membranes Moist, Normal Exam - Neck Exam Neck Exam: Full ROM, Normal Inspection. absent: Lymphadenopathy - Respiratory Exam Respiratory Exam: Decreased Breath Sounds (decreased breath sounds at level of T6 at R posterior chest wall), NORMAL BREATHING PATTERN. absent: Accessory Muscle Use, Chest Wall Tenderness, Clear to Ausculation Bilateral, Prolonged Expiratory Phase, Rales, Rhonchi, Wheezes, Respiratory Distress - Cardiovascular Exam Cardiovascular Exam: REGULAR RHYTHM, RRR, +S1, +S2. absent: Bradycardia, Tachycardia, Clicks, Diastolic murmur, Gallop, Irregular Rhythm, JVD, Rubs, +S4 , Murmur - GI/Abdominal Exam GI & Abdominal Exam: Soft, Normal Bowel Sounds. absent: Distended, Tenderness - Extremities Exam Extremities Exam: Full ROM, Normal Capillary Refill, Normal Inspection. 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 Extending over R neck and chest, over shoulder and arm, covering dorsum of hand. Assessment and Plan - Assessment and Plan (Free Text) Assessment: 77 year old female with a past medical history significant for COPD, Crohn's Disease, HTN, and Tobacco Use Disorder who presented for lightheadedness and dyspnea for 1.5 months and found to have a new lung mass of the RLL. Patient will undergo lung biopsy today (11/24/17). Plan: 1. New Lung Mass of RLL -CT Chest showed a 3.2cm mass in the superior segment of the right lower lobe with spiculated border consistent with a lung malignancy -CT-guided lung biopsy under local anesthetic scheduled for today (11/24/17) -INR currently 1.4 s/p Vitamin K inj. -IR ([facility]) consulted, all recommendations appreciated 2. COPD -Discontinue scheduled Duonebs -Continue PRN Duonebs -Continue Pulmicort and Brovana Q12 -Pulmonology consulted (Say), all recommendations appreciated 3. Orthostatic Hypotension -Head CT showed no acute intracranial abnormalities -Decreased dose of Losartan from 50mg to 25mg daily -Patient educated on safe transitions from sitting to standing and maintaining adequate hydration 4. Tobacco Use Disorder -Continue daily Nicotine transdermal replacement therapy -Smoking cessation recommendations provided 5. History of Bilateral DVT -Home Warfarin held in setting of lung biopsy; Will resume after biopsy -Daily INR 6. History of HTN -Started Losartan 25mg as mentioned above 7. History of Crohn's Disease -Continue Welchol -Continue Low Fiber Diet GI Prophylaxis: Protonix DVT Prophylaxis: Warfarin (held for lung biopsy) Patient seen and case discussed with attending, Dr. Truong. [place] PGY2 <Salazar Truong - Last Filed: 11/24/17 14:27> Objective - Vital Signs/Intake and Output Vital Signs (last 24 hours): Temp Pulse Resp BP Pulse Ox 97.6 F 65 18 133/70 96 11/24/17 08:37 11/24/17 10:47 11/24/17 08:37 11/24/17 10:47 11/24/17 08:37 Intake and Output: 11/24/17 11/24/17 06:59 18:59 Intake Total 720 Balance 720 - Medications Medications: Current Medications Albuterol/Ipratropium (Duoneb 3 Mg/0.5 Mg (3 Ml) Ud) 3 ml IH Q2H PRN PRN Reason: Shortness of Breath Arformoterol Tartrate (Brovana) 15 mcg IH [id number] [facility] Last Admin: 11/24/17 08:04 Dose: 15 mcg Budesonide (Pulmicort Respules) 0.25 mg IH [id number] [facility] Last Admin: 11/24/17 08:04 Dose: 0.25 mg Calcium/Vitamin D (Oscal-D 250 Mg-125 Units Tab) 1 tab PO DAILY [facility] Last Admin: 11/24/17 10:48 Dose: 1 tab Folic Acid (Folic Acid) 1 mg PO DAILY [facility] Last Admin: 11/24/17 10:48 Dose: 1 mg Sodium Chloride (Sodium Chloride 0.45%) 1,000 mls @ 80 mls/hr IV .[id number] [facility] Losartan Potassium (Cozaar) 25 mg PO DAILY [facility] Multivitamins (Thera Tab) 1 tab PO DAILY [facility] Last Admin: 11/24/17 10:48 Dose: 1 tab Nicotine (Nicoderm Cq) 1 patch TD DAILY [facility] Last Admin: 11/24/17 10:53 Dose: Not Given Non-Formulary Medication (Colesevelam Hcl [Welchol]) 3 tab PO BID [facility] Last Admin: 11/24/17 09:53 Dose: Not Given Pantoprazole Sodium (Protonix Ec Tab) 40 mg PO 0600 [facility] Last Admin: 11/24/17 06:13 Dose: 40 mg - Labs Labs: 11/24/17 06:30 11/24/17 06:30 PT 17.1 SECONDS (9.4-12.5) H 11/24/17 06:30 INR 1.48 11/24/17 06:30 APTT 32.7 Seconds (25.1-36.5) 11/24/17 06:30 Attending/Attestation - Attestation I have personally seen and examined this patient.: Yes I have fully participated in the care of the patient.: Yes I have reviewed all pertinent clinical information, including history, physical exam and plan: Yes Notes (Text): 11/24/17 14:24 Medical record note made by the resident after discussion with my direction and input after the patient was personally seen and examined by me. I have reviewed the chart and agree that the record accurately reflects by personal performance of the history, physical exam, data review, and medical decision-making, in the course for the patient. I have also personally directed the plan of care. 77 F w PMHx DVT,SP IVC filter on oral anticoagulation with warfarin, Chronic smoking, COPD, Crohns disease, and HTN was admitted with dyspnea on exertion and intermittent dizziness with standing. t CT chest revealed a round, 3.2 cm speculated lung mass in RLL adjacent to R posterior chest wall. Noncontrast CT brain demonstrated no acute abnormalities. Patient is schedulled for CT guided biopsy of lung mass by IR.Pulmonary evaluation is appreciated. Dizziness is due to Orthostatic hypotension, Losartan dose is reduced to 25 mg PO daily. Management plan was discussed in detail with patient. Education was provided.
[2017-11-24] MEDS: Sodium Chloride 0.45% 1,000 ML IV SCH (14:15)
[2017-11-24] MEDS ORDERED: Midazolam 2 MG/2 ML VIAL ONE (16:50)
[2017-11-24] MEDS ORDERED: Midazolam 2 MG/2 ML VIAL IVP ONE (18:02)
--- NOTE | 2017-11-24 18:05 | CT ---
PROCEDURE: CT guided right lower lobe lung biopsy. HISTORY: 3.1 cm spiculated right lower lobe lung mass. Smoker. Evaluate for malignancy. PHYSICIAN(S): Isidro Gabriel MD. TECHNIQUE: The relative risks and indications of the procedure were explained to the patient and consent obtained. The patient was placed prone on the CT scanner and preliminary images through the lung bases obtained. Conscious sedation and monitoring were provided throughout the procedure by a nurse. There is a 3.1 cm noncalcified mass in the right lower lobe posteriorly with spiculated margins.. A right posterior approach was selected and the area prepped and draped in the usual sterile fashion. 1% Xylocaine was used to anesthetize the skin and soft tissues. A 19 gauge guiding needle was advanced into the 3.1 cm right lower lobe lung mass. Its position was confirmed with CT. Using coaxial technique, multiple core biopsies were obtained. The postprocedure images show no evidence of large pneumothorax or significant hemorrhage.. IMPRESSION: 1. CT-guided right lower lobe lung biopsy as described above.
[2017-11-25] MEDS: Sodium Chloride 0.45% 1,000 ML IV SCH (02:57)
[2017-11-25] MEDS: Pantoprazole 40 mg EC Tab PO SCH (05:27)
[2017-11-25 07:19] LABS: BASO # 0.03 K/mm3 (0.0-2.0); BASO % 0.4 % (0.0-3.0); EOS # 0.1 (0.0-0.7); EOS % 1.7 % (1.5-5.0); GRAN # 5.61 (1.4-6.5); GRAN % 67.1 % (50.0-68.0); HEMOGLOBIN 12.7 g/dL (12.0-16.0); LYMPH % 23.3 % (22.0-35.0); MEAN CELL VOLUME 91.3 fl (80.0-105.0); MEAN CORPUSCULAR HEMOGLOBIN 30.5 pg (25.0-35.0); MEAN CORPUSCULAR HGB CONC 33.4 g/dl (31.0-37.0); MEAN PLATELET VOLUME 11.4 fl (7.0-11.0); MONO # 0.6 (0.1-0.6); MONO % 7.5 % (1.0-6.0); RBC 4.16 10^6/uL (3.5-6.1); RED CELL DISTRIBUTION WIDTH 13.7 % (11.5-14.5); WHITE BLOOD COUNT 8.4 10^3/ul (4.5-11.0)
[2017-11-25 07:24] LABS: INR 1.09; PROTHROMBIN TIME 12.5 SECONDS (9.4-12.5)
[2017-11-25 07:27] LABS: PARTIAL THROMBOPLASTIN TIME 28.8 Seconds (25.1-36.5)
[2017-11-25 07:38] LABS: ALB/GLOB RATIO 1.2 (1.1-1.8); ALT/SGPT 31 U/L (7-56); AST/SGOT 31 U/L (14-36); BLOOD UREA NITROGEN 11 mg/dL (7-21); CALCIUM 9.4 mg/dL (8.4-10.5); GFR AFRICAN-AMERICAN > 60; GFR NON-AFRICAN AMERICAN > 60
[2017-11-25] MEDS: Budesonide 0.25 mg/2 ml Inhal Susp UD IH SCH (07:55)
[2017-11-25] MEDS: Arformoterol 15 mcg/2 ml Inh Sol IH SCH (07:55)
--- NOTE | 2017-11-25 08:26 | RAD ---
Date of service: 11/24/2017 HISTORY: rt lung bx COMPARISON: 11/24/2019 FINDINGS: LUNGS: The lungs are well inflated. There is redemonstration 4.0 x 3.3 cm spiculated mass in the right lower lobe. The left lung is clear. PLEURA: No significant pleural effusion identified, no pneumothorax apparent. CARDIOVASCULAR: Normal. OSSEOUS STRUCTURES: No significant abnormalities. VISUALIZED UPPER ABDOMEN: Normal. OTHER FINDINGS: None. IMPRESSION: Status post biopsy of known 4.0 x 3.0 cm spiculated mass in the right lower lobe. No pneumothorax.
[2017-11-25] MEDS: Non Formulary Medication (Colesevelam Hcl [Welchol] 3 TAB) PO SCH (09:03)
[2017-11-25] MEDS: Multivitamin Therapeutic Tab PO SCH (09:20)
[2017-11-25] MEDS: Calcium-Vit D 250 mg-125 Units Tab UD PO SCH (09:20)
[2017-11-25 09:21] VITALS: BP 132/72; RESP 20; TEMP 97.4; O2SAT 97
--- NOTE | 2017-11-25 09:47 | PN ---
Copied To: Perez Deal MD Attending MD: Perez Deal MD DATE: 11/25/2017 PULMONARY NOTE DICTATION SUBJECTIVE: The patient appears comfortable this morning. She is not short of breath at rest. PHYSICAL EXAMINATION: VITAL SIGNS: Temperature is 97.7, pulse 63, respirations 18, last blood pressure recorded is 126/82. Oxygen saturation on nasal cannula is 99%. Oxygen saturation on room air is 96-98%. HEENT: Normocephalic, atraumatic. No JVD. CARDIOVASCULAR: Positive S1, S2. No S3 gallop. LUNGS: Improved breath sounds at the bases. No rhonchi or wheezing this morning. EXTREMITIES: No clubbing, cyanosis or edema. Calves are nontender to palpation. GI: Abdomen is soft, nontender and nondistended. Bowel sounds are positive. SKIN: Multiple hemangiomas on the upper trunk and right arm. NEUROLOGIC: Limited at the present time. IMPRESSION: 1. Dizziness, weakness - resolved. 2. Right lower lobe lung mass. 3. Chronic obstructive pulmonary disease. 4. History of deep venous thrombosis. PLAN: The patient appears very comfortable this morning. She is not short of breath at rest. Her dizziness has resolved. She does state to feeling much, much better overall. On physical exam, her bronchospasm has primarily resolved. In addition, there is no significant alveolar-arterial gradient. I will continue the current nebulizer treatments and inhaled steroids for now. The patient is status post CAT scan-guided lung biopsy. Pathology is pending. Clinical status of the patient is significantly improved - compared to the initial presentation. However, given the above, her overall status/prognosis does remain guarded. The patient is for probable discharge in the near future. I did give her my card/information for a followup appointment. She promises to come to the office. I will discuss the above with the attending physician. Perez Deal MD RUBÉN
[2017-11-25 14:20] VITALS: PULSE 78
--- NOTE | 2017-11-25 16:24 | CP.PCM.DIS ---
<Gallito Daniels - Last Filed: 11/25/17 16:09> Provider - Provider Date of Admission: 11/23/17 10:09 Attending physician: Salazar rTuong MD Primary care physician: Christian Lema MD Consults: Enedelia - Dr. Say POWERS- Dr Gabriel Onc- Dr. Miller Time Spent in preparation of Discharge (in minutes): 45 Hospital Course - Lab Results Lab Results: Most Recent Lab Values WBC 8.4 10^3/ul (4.5-11.0) 11/25/17 06:45 RBC 4.16 10^6/uL (3.5-6.1) 11/25/17 06:45 Hgb 12.7 g/dL (12.0-16.0) 11/25/17 06:45 Hct 38.0 % (36.0-48.0) 11/25/17 06:45 MCV 91.3 fl (80.0-105.0) 11/25/17 06:45 MCH 30.5 pg (25.0-35.0) 11/25/17 06:45 MCHC 33.4 g/dl (31.0-37.0) 11/25/17 06:45 RDW 13.7 % (11.5-14.5) 11/25/17 06:45 Plt Count 181 10^3/uL (120.0-450.0) 11/25/17 06:45 MPV 11.4 fl (7.0-11.0) H 11/25/17 06:45 Gran % 67.1 % (50.0-68.0) 11/25/17 06:45 Lymph % (Auto) 23.3 % (22.0-35.0) 11/25/17 06:45 [place] % (Auto) 7.5 % (1.0-6.0) H 11/25/17 06:45 Eos % (Auto) 1.7 % (1.5-5.0) 11/25/17 06:45 Baso % (Auto) 0.4 % (0.0-3.0) 11/25/17 06:45 Gran # 5.61 (1.4-6.5) 11/25/17 06:45 Lymph # (Auto) 2.0 (1.2-3.4) 11/25/17 06:45 [place] # (Auto) 0.6 (0.1-0.6) 11/25/17 06:45 Eos # (Auto) 0.1 (0.0-0.7) 11/25/17 06:45 Baso # (Auto) 0.03 K/mm3 (0.0-2.0) 11/25/17 06:45 PT 12.5 SECONDS (9.4-12.5) 11/25/17 06:45 INR 1.09 11/25/17 06:45 APTT 28.8 Seconds (25.1-36.5) 11/25/17 06:45 Sodium 141 mmol/L (132-148) 11/25/17 06:45 Potassium 3.8 mmol/L (3.6-5.0) 11/25/17 06:45 Chloride 105 mmol/L (98-107) 11/25/17 06:45 Carbon Dioxide 27 mmol/L (21-33) 11/25/17 06:45 Anion Gap 13 (10-20) 11/25/17 06:45 BUN 11 mg/dL (7-21) 11/25/17 06:45 Creatinine 0.8 mg/dl (0.7-1.2) 11/25/17 06:45 Est GFR ( Amer) > 60 11/25/17 06:45 Est GFR (Non-Af Amer) > 60 11/25/17 06:45 Random Glucose 95 mg/dL (70-110) 11/25/17 06:45 Calcium 9.4 mg/dL (8.4-10.5) 11/25/17 06:45 Phosphorus 3.7 mg/dL (2.5-4.5) 11/25/17 06:45 Magnesium 2.1 mg/dL (1.7-2.2) 11/25/17 06:45 Total Bilirubin 0.7 mg/dL (0.2-1.3) 11/25/17 06:45 AST 31 U/L (14-36) 11/25/17 06:45 ALT 31 U/L (7-56) 11/25/17 06:45 Alkaline Phosphatase 106 U/L (38-126) 11/25/17 06:45 Lactate Dehydrogenase 467 U/L (333-699) 11/23/17 08:10 Total Creatine Kinase 36 U/L (35-230) 11/23/17 08:10 Troponin I 0.01 ng/mL 11/23/17 08:10 NT-Pro-B Natriuret Pep 226 pg/mL (0-450) 11/23/17 08:10 Total Protein 7.4 g/dL (5.8-8.3) 11/25/17 06:45 Albumin 4.0 g/dL (3.0-4.8) 11/25/17 06:45 Globulin 3.3 gm/dL 11/25/17 06:45 Albumin/Globulin Ratio 1.2 (1.1-1.8) 11/25/17 06:45 Urine Color Yellow (YELLOW) 11/23/17 08:01 Urine Appearance Clear (CLEAR) 11/23/17 08:01 Urine pH 6.0 (4.7-8.0) 11/23/17 08:01 Ur Specific [place] 1.015 (1.005-1.035) 11/23/17 08:01 Urine Protein Negative mg/dL (<30 mg/dL) 11/23/17 08:01 Urine Glucose (UA) Negative mg/dL (NEGATIVE) 11/23/17 08:01 Urine Ketones Negative mg/dL (NEGATIVE) 11/23/17 08:01 Urine Blood Moderate (NEGATIVE) H 11/23/17 08:01 Urine Nitrate Negative (NEGATIVE) 11/23/17 08:01 Urine Bilirubin Negative (NEGATIVE) 11/23/17 08:01 Urine Urobilinogen 0.2 E.U./dL (<1 E.U./dL) 11/23/17 08:01 Ur Leukocyte Esterase Trace Ad/uL (NEGATIVE) H 11/23/17 08:01 Urine RBC 10 - 15 /hpf (0-2) 11/23/17 08:01 Urine WBC 2 - 5 /hpf (0-6) 11/23/17 08:01 Ur Epithelial Cells 4 - 5 /hpf (0-5) 11/23/17 08:01 Urine Bacteria Mod (NEG) 11/23/17 08:01 - Hospital Course Hospital Course: Gallito Daniels, PGY-1 Discharge Summary for Hospitalist Service HPI: Ms. Salguero is a 77 yo woman who was admitted Aug 7 after presenting to the ED for evaluation of worsening lightheadedness and dyspnea for the past 1.5 months. She has a PMHx of bilateral DVTs s/p IVC filter placement, tobacco use, COPD, HTN, and Crohns disease. Her physical exam on arrival was significant only for transmitted breath sounds over upper lung valenzuela with bronchophony present in RLL. Hospital Course: Workup for PE and acute coronary syndrome was undertaken and found to be unremarkable with ECG returning NSR at 74 with LVH criteria and negative troponin test. The pts INR was in therapeutic range (2.85) on admission. CXR and CT chest returned significant for a round 3.2 cm lung mass with speculated borders of the RLL, abutting the posterior R chest wall without additional findings consistent with PE or pneumonia. Pulmonology was brought onto the case (Dr. Deal) to address the pts dyspnea and chronic COPD. Recommendations to continue the pts home regimen was continued with Pulmicort and Brovana were endorsed. IR was consulted (Dr. Gabriel) for CT-guided lung biopsy on Nov 24 under moderate sedation. Multiple specimens were retrieved and sent for histological examination. The patient tolerated this very well and no bleeding or pneumothorax was observed. Follow-up CXR was obtained that day and showed no interval changes from prior. Warfarin was held and Vitamin K injection was Lightheadedness was addressed, and non-contrast head CT was obtained and unremarkable for acute intracranial findings, safely ruling out acute intracranial processes. The pts dose of losartan was reduced to 25 mg to good effect. Blood pressures remained stable throughout admission. Orthostatics were obtained and were significant for a drop in systolic blood pressure from sitting to standing by greater than 20 mmHg. The patient was counselled on this and encouraged to drink more non-caffeinated fluids at home and use safe sit-to- stand techniques to reduce her risk of falling. The patient denied any lightheadedness during her hospital stay. Additionally, urinalysis in the ED revealed elevated leukocyte esterase and moderate blood. Urine cultures were obtained and revealed 50,000-100,000 cfu GBS. The patient remained asymptomatic without dysuria, urinary frequency, urgency, and incontinence for the duration of her hospital stay. Treatment for her asymptomatic bacteriuria is not indicated at this time. Patient was counselled on tobacco cessation as well, and was outfitted with Nicotine patches. Patient is hemodynamically stable, without shortness of breath or chest pain or dizziness. Patient denies any urinary symptoms and is in full agreement to go home and follow up with Dr. Lema, Dr. Deal, and Dr. Miller next week. Patient was instructed to continue her Warfarin as per previous recommendations and was given a script for a PT/INR check next week. Patient seen, case reviewed and plan discussed with Dr. Truong. Gallito Daniels, PGY-1 Discharge Exam - Head Exam Head Exam: ATRAUMATIC, NORMAL INSPECTION, NORMOCEPHALIC - Additional Findings Additional findings: - Constitutional Appears: Well, No Acute Distress - Head Exam Head Exam: ATRAUMATIC, NORMAL INSPECTION, NORMOCEPHALIC - Eye Exam Eye Exam: EOMI, Normal appearance. absent: Nystagmus, Scleral icterus - ENT Exam ENT Exam: Mucous Membranes Moist, Normal Exam - Neck Exam Neck Exam: Full ROM, Normal Inspection. absent: Lymphadenopathy - Respiratory Exam Respiratory Exam: Decreased Breath Sounds (decreased breath sounds at level of T6 at R posterior chest wall), NORMAL BREATHING PATTERN. absent: Accessory Muscle Use, Chest Wall Tenderness, Clear to Ausculation Bilateral, Prolonged Expiratory Phase, Rales, Rhonchi, Wheezes, Respiratory Distress - Cardiovascular Exam Cardiovascular Exam: REGULAR RHYTHM, RRR, +S1, +S2. absent: Bradycardia, Tachycardia, Clicks, Diastolic murmur, Gallop, Irregular Rhythm, JVD, Rubs, +S4 , Murmur - GI/Abdominal Exam GI & Abdominal Exam: Soft, Normal Bowel Sounds. absent: Distended, Tenderness - Extremities Exam Extremities Exam: Full ROM, Normal Capillary Refill, Normal Inspection. 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 Extending over R neck and chest, over shoulder and arm, covering dorsum of hand. Discharge Plan - Discharge Medications Prescriptions: Albuterol HFA [Ventolin HFA 90 mcg/actuation (8 g)] 2 puff IH Q4H PRN #1 inhaler PRN Reason: Shortness Of Breath Losartan [Cozaar] 25 mg PO DAILY #30 tab Mometasone/Formoterol [Dulera 100 Mcg/5 Mcg Inhaler] 13 gm IH BID PRN #1 inhaler PRN Reason: Shortness Of Breath - Follow Up Plan Condition: FAIR Disposition: HOME/ ROUTINE Instructions: Quitting Smoking for Older Adults, Smoking: Not Just Harmful to Your Lungs and Heart, Orthostatic Hypotension (DC), Syncope (Fainting) (DC), Drugs to Help You Stop Using Tobacco Additional Instructions: Patient should take all medications as prescribed. Patient should make an appointment with Dr. Lema within one to two weeks of discharge. Patient should follow up with Dr. Perez Deal ([employer]) for continued care. Patient should follow up with Dr. Miller (Oncologist in [place]) regarding her appointment on WednesdayNovember 30. Patient should have her INR checked with blood work next week. Patient should try to stop smoking. Nicotine patch provided. Should symptoms reoccur or worsen, patient should seek immediate medical care. Referrals: Christian Lema MD [Primary Care Provider] - <Salazar Truong - Last Filed: 11/25/17 16:54> Provider - Provider Date of Admission: 11/23/17 10:09 Attending physician: Salazar Truong MD Primary care physician: Christian Lema MD Hospital Course - Lab Results Lab Results: Most Recent Lab Values WBC 8.4 10^3/ul (4.5-11.0) 11/25/17 06:45 RBC 4.16 10^6/uL (3.5-6.1) 11/25/17 06:45 Hgb 12.7 g/dL (12.0-16.0) 11/25/17 06:45 Hct 38.0 % (36.0-48.0) 11/25/17 06:45 MCV 91.3 fl (80.0-105.0) 11/25/17 06:45 MCH 30.5 pg (25.0-35.0) 11/25/17 06:45 MCHC 33.4 g/dl (31.0-37.0) 11/25/17 06:45 RDW 13.7 % (11.5-14.5) 11/25/17 06:45 Plt Count 181 10^3/uL (120.0-450.0) 11/25/17 06:45 MPV 11.4 fl (7.0-11.0) H 11/25/17 06:45 Gran % 67.1 % (50.0-68.0) 11/25/17 06:45 Lymph % (Auto) 23.3 % (22.0-35.0) 11/25/17 06:45 [place] % (Auto) 7.5 % (1.0-6.0) H 11/25/17 06:45 Eos % (Auto) 1.7 % (1.5-5.0) 11/25/17 06:45 Baso % (Auto) 0.4 % (0.0-3.0) 11/25/17 06:45 Gran # 5.61 (1.4-6.5) 11/25/17 06:45 Lymph # (Auto) 2.0 (1.2-3.4) 11/25/17 06:45 [place] # (Auto) 0.6 (0.1-0.6) 11/25/17 06:45 Eos # (Auto) 0.1 (0.0-0.7) 11/25/17 06:45 Baso # (Auto) 0.03 K/mm3 (0.0-2.0) 11/25/17 06:45 PT 12.5 SECONDS (9.4-12.5) 11/25/17 06:45 INR 1.09 11/25/17 06:45 APTT 28.8 Seconds (25.1-36.5) 11/25/17 06:45 Sodium 141 mmol/L (132-148) 11/25/17 06:45 Potassium 3.8 mmol/L (3.6-5.0) 11/25/17 06:45 Chloride 105 mmol/L (98-107) 11/25/17 06:45 Carbon Dioxide 27 mmol/L (21-33) 11/25/17 06:45 Anion Gap 13 (10-20) 11/25/17 06:45 BUN 11 mg/dL (7-21) 11/25/17 06:45 Creatinine 0.8 mg/dl (0.7-1.2) 11/25/17 06:45 Est GFR ( Amer) > 60 11/25/17 06:45 Est GFR (Non-Af Amer) > 60 11/25/17 06:45 Random Glucose 95 mg/dL (70-110) 11/25/17 06:45 Calcium 9.4 mg/dL (8.4-10.5) 11/25/17 06:45 Phosphorus 3.7 mg/dL (2.5-4.5) 11/25/17 06:45 Magnesium 2.1 mg/dL (1.7-2.2) 11/25/17 06:45 Total Bilirubin 0.7 mg/dL (0.2-1.3) 11/25/17 06:45 AST 31 U/L (14-36) 11/25/17 06:45 ALT 31 U/L (7-56) 11/25/17 06:45 Alkaline Phosphatase 106 U/L (38-126) 11/25/17 06:45 Lactate Dehydrogenase 467 U/L (333-699) 11/23/17 08:10 Total Creatine Kinase 36 U/L (35-230) 11/23/17 08:10 Troponin I 0.01 ng/mL 11/23/17 08:10 NT-Pro-B Natriuret Pep 226 pg/mL (0-450) 11/23/17 08:10 Total Protein 7.4 g/dL (5.8-8.3) 11/25/17 06:45 Albumin 4.0 g/dL (3.0-4.8) 11/25/17 06:45 Globulin 3.3 gm/dL 11/25/17 06:45 Albumin/Globulin Ratio 1.2 (1.1-1.8) 11/25/17 06:45 Urine Color Yellow (YELLOW) 11/23/17 08:01 Urine Appearance Clear (CLEAR) 11/23/17 08:01 Urine pH 6.0 (4.7-8.0) 11/23/17 08:01 Ur Specific [place] 1.015 (1.005-1.035) 11/23/17 08:01 Urine Protein Negative mg/dL (<30 mg/dL) 11/23/17 08:01 Urine Glucose (UA) Negative mg/dL (NEGATIVE) 11/23/17 08:01 Urine Ketones Negative mg/dL (NEGATIVE) 11/23/17 08:01 Urine Blood Moderate (NEGATIVE) H 11/23/17 08:01 Urine Nitrate Negative (NEGATIVE) 11/23/17 08:01 Urine Bilirubin Negative (NEGATIVE) 11/23/17 08:01 Urine Urobilinogen 0.2 E.U./dL (<1 E.U./dL) 11/23/17 08:01 Ur Leukocyte Esterase Trace Ad/uL (NEGATIVE) H 11/23/17 08:01 Urine RBC 10 - 15 /hpf (0-2) 11/23/17 08:01 Urine WBC 2 - 5 /hpf (0-6) 11/23/17 08:01 Ur Epithelial Cells 4 - 5 /hpf (0-5) 11/23/17 08:01 Urine Bacteria Mod (NEG) 11/23/17 08:01 Attending/Attestation - Attestation I have personally seen and examined this patient.: Yes I have fully participated in the care of the patient.: Yes I have reviewed all pertinent clinical information, including history, physical exam and plan: Yes Notes (Text): 11/25/17 16:51 Medical record note made by the resident after discussion with my direction and input after the patient was personally seen and examined by me. I have reviewed the chart and agree that the record accurately reflects by personal performance of the history, physical exam, data review, and medical decision-making, in the course for the patient. I have also personally directed the plan of care. 77 F w PMHx DVT,SP IVC filter on oral anticoagulation with warfarin, Chronic smoking, COPD, Crohns disease, and HTN was admitted with dyspnea on exertion and intermittent dizziness with standing. CT chest revealed a round, 3.2 cm speculated lung mass in RLL adjacent to R posterior chest wall. Noncontrast CT brain demonstrated no acute abnormalities. Patient underwent CT guided biopsy of lung mass by IR yesterday.Patient remain stable after the procedure.Biopsy results are pending at the time of discharge.She will follow up results with PCP and Pulmonary.She will also follow up with , Oncology. Dizziness is due to Orthostatic hypotension, Losartan dose is reduced to 25 mg PO daily.Patient is asymptomatic and is ambulatory. Patient has been restarted on warfarin, will have INR checked with PCP on . Management plan was discussed in detail with patient. Education was provided.
== END 2017-11-25 14:21 | disposition home or self-care (01) | DRG 312 ==
LOC: ED 07:28 → ERH 10:09 → 3RSO 15:43
PROVIDERS: ADMIT Internal Medicine; ATTEND Internal Medicine
PROC: 3E0F7GC Introduction of Other Therapeutic Substance into Respiratory Tract, Via Natural or Artificial Opening (ICD-10-PCS; 2017-11-23)
PROC: 0BBF3ZX Excision of Right Lower Lung Lobe, Percutaneous Approach, Diagnostic (ICD-10-PCS; principal; 2017-11-24 16:00)
DX: I95.1 Orthostatic hypotension (principal); K50.90 Crohn's disease, unspecified, without complications; C34.31 Malignant neoplasm of lower lobe, right bronchus or lung; J44.9 Chronic obstructive pulmonary disease, unspecified; I10 Essential (primary) hypertension; F17.210 Nicotine dependence, cigarettes, uncomplicated; Z86.718 Personal history of other venous thrombosis and embolism; Z79.01 Long term (current) use of anticoagulants

== ENCOUNTER 2018-02-03 10:27 | Emergency (ER) | payer MEDICARE ==
[2018-02-03 10:34] VITALS: BMI 20.5
[2018-02-03 10:35] VITALS: TEMP 97.7
--- NOTE | 2018-02-03 11:49 | ED PDOC ---
Arrival/HPI - General Chief Complaint: Abnormal Skin Integrity Time Seen by Provider: 02/03/18 10:37 Historian: Patient - History of Present Illness Narrative History of Present Illness (Text): 02/03/18 11:20 77 year old female whose past medical history includes DVTs on Coumadin, COPD, Crohn's disease, cholecystectomy, a partial hysterectomy, and partial lobectomy of right lower lung, who presents to the Emergency department with sudden onset of watery/bloody fluid coming out from surgical incision upon coughing starting approximately 15 minutes prior to arrival. Patient notes removal of right lower lobe of lung on 01/24/18 at [facility] by Surgeon Sarah Darling. Patient states after showering and getting ready this morning, she felt something warm and noticed a mix of clear water and pink color (blood) running out of incision. Patient states she was fine post-op without any pain, prior to today. Patient states she is on Warfarin at home; 3mg x2 days a week (Wednesday and Wednesday) and 2 mg x5 days a week. Patient notes she was off of Warfarin for 8 days while at hospital. Patient notes she started blood pressure pills on 01/31/18. Patient denies chest pain, dizziness, shortness of breath, difficulty breathing, or any other complaints. PMD: Dr. Lema Time/Duration: Prior to Arrival (approximately 15 minutes prior to arrival) Symptom Onset: Sudden Symptom Course: Unchanged Activities at Onset: Light Context: Home Past Medical History - Provider Review Nursing Documentation Reviewed: Yes - Infectious Disease Hx of Infectious Diseases: None - Tetanus Immunization Tetanus Immunization: Unknown - Reproductive Menopause: No - Cardiac Hx Cardiac Disorders: Yes Hx Hypertension: Yes - Pulmonary Hx Respiratory Disorders: Yes Hx Chronic Obstructive Pulmonary Disease (COPD): Yes - Neurological Hx Neurological Disorder: No Hx Paralysis: No - HEENT Hx HEENT Disorder: Yes (eyeglasses) - Renal Hx Renal Disorder: Yes Hx Kidney Stones: Yes Other/Comment: r urethral stone, 09/15/16 ureteroscopy w/laser lithotripsy/insertion of stent/dr evans - Endocrine/Metabolic Hx Endocrine Disorders: No - Hematological/Oncological Hx Blood Disorders: No Hx Blood Transfusions: No Hx Blood Transfusion Reaction: (N/A) - Integumentary Hx Dermatological Disorder: Yes Other/Comment: 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; clarisa - Musculoskeletal/Rheumatological Hx Musculoskeletal Disorders: Yes Hx Arthritis: Yes - Gastrointestinal Hx Gastrointestinal Disorders: Yes Hx Crohn's Disease: Yes - Genitourinary/Gynecological Hx Genitourinary Disorders: Yes Hx Hematuria: Yes Other/Comment: ovarian mass - Psychiatric Hx Psychophysiologic Disorder: No Hx Emotional Abuse: No Hx Physical Abuse: No Hx Substance Use: No - Surgical History Hx Cholecystectomy: Yes Hx Hysterectomy: Yes Other/Comment: right lower lung lobe removal 02/03 - Anesthesia Hx Anesthesia: Yes Hx Anesthesia Reactions: No Hx Malignant Hyperthermia: No - Suicidal Assessment Feels Threatened In Home Enviroment: No Family/Social History - Physician Review Nursing Documentation Reviewed: Yes Family/Social History: No Known Family HX Smoking Status: Former Smoker Hx Alcohol Use: No (RARELY) Hx Substance Use: No Hx Substance Use Treatment: No Allergies/Home Meds Allergies/Adverse Reactions: Allergies No Known Allergies Allergy (Verified 11/23/17 07:42) Home Medications: Home Meds Medication Instructions Recorded Confirmed RX: Warfarin [Coumadin] 2 mg PO DAILY 01/03/12 02/03/18 RX: Colesevelam HCl [Welchol] 2 tab PO BID 08/24/14 02/03/18 RX: Calcium Carbonate/Vitamin D 1 tab PO DAILY 10/23/15 02/03/18 [Oscal-D 250 mg-125 Units Tab] RX: Folic Acid 1 mg PO DAILY 10/23/15 02/03/18 RX: Multivitamin [Multivitamins] 1 cap PO DAILY 10/23/15 02/03/18 Tiotropium Marrero [Spiriva 2.5 mcg IH DAILY 12/13/17 02/03/18 Respimat] Review of Systems - Physician Review All systems were reviewed & negative as marked: Yes - Review of Systems Respiratory: Normal, Other (patient denies difficulty breathing). absent: SOB (patient denies shortness of breath) Cardiovascular: Normal. absent: Chest Pain (patient denies chest pain) Skin: Other (patient notes watery/bloody discharge of fluid from surgical incision ). absent: Normal Neurological: Normal. absent: Dizziness (patient denies dizziness) Physical Exam Vital Signs Reviewed: Yes Vital Signs Temp Pulse Resp BP Pulse Ox 02/03/18 10:34 97.7 F 79 18 118/90 99 Temperature: Afebrile Blood Pressure: Normal Pulse: Regular Respiratory Rate: Normal Appearance: Positive for: Well-Appearing, Non-Toxic Pain Distress: None Mental Status: Positive for: Alert and Oriented X 3 - Systems Exam Head: Present: Atraumatic, Normocephalic Pupils: Present: PERRL Extroacular Muscles: Present: EOMI Conjunctiva: Present: Normal Mouth: Present: Moist Mucous Membranes Neck: Present: Normal Range of Motion Respiratory/Chest: Present: Clear to Auscultation, Good Air Exchange. No: Respiratory Distress, Accessory Muscle Use Cardiovascular: Present: Regular Rate and Rhythm, Normal S1, S2. No: Murmurs Abdomen: Present: Normal Bowel Sounds. No: Tenderness, Distention, Peritoneal Signs Breast/Axillary: Present: Other (3 surgical incisons noted to right mid axillary line. Sutures present at previous chest tube site. Seromatous fluid) Back: Present: Normal Inspection Upper Extremity: Present: Normal Inspection, Other (port wine stain noted on right upper extremity extending towards the back and neck). No: Cyanosis, Edema Lower Extremity: Present: Normal Inspection. No: Edema Neurological: Present: GCS=15, CN II-XII Intact, Speech Normal Skin: Present: Warm, Dry, Other (Large port-wine stain noted extending from right upper extremity to the sacrum of patient on the right side). No: Rashes Psychiatric: Present: Alert, Oriented x 3, Normal Insight, Normal Concentration Medical Decision Making ED Course and Treatment: 02/03/18 11:20 Impression: 77 year old female who presents to the Emergency department with sudden onset of water/bloody fluid coming out from surgical incision upon coughing starting approximately 15 minutes prior to arrival. Differential Diagnosis included but are not limited to: Pleural effusion(malignant) PNA Plan: -- Labs -- EKG -- X-ray of chest -- Blood culture -- Urine culture -- Urinalysis -- Reassess and disposition Prior Visits: Notes and results from previous visits were reviewed. Patient was last seen in the emergency department on 11/23/17 with dizziness and shortness of breath, for one week prior to arrival. Patient was hospitalized with diagnosis of lung mass and dizziness. Progress Notes: 02/03/18 10:[address] Darling(cardiothoracic surgery) placed with lottery sales clerk informing me of her being in OR. Labs reviewed with slight anemia noted and CXR shows large pleural effusion. CT chest ordered. Call placed to surgery residents who will come to see the patient. 02/03/18 13:01 Surgery residents evaluate patient and state patient does not need acute surgical intervention at this time but must follow up with her primary surgeon. They do not feel wound is infected and encourage continuous supportive measures as well as wound care. INR noted to be 5 with PO Vitamin K ordered. CDs ordered of imaging. Will send patient home with antibiotics. 02/03/18 14:[address] Darling who confirms she will be seeing patient in office tomorrow. She appreciates the call. - RAD Interpretation Narrative RAD Interpretations (Text): X-ray of chest reviewed by radiologist, shows: Dictator : Isidro Lyons MD Report Date : 02/03/2018 13:02:04 FINDINGS: LUNGS: There has been resection of the right lower lobe lung mass. There is now consolidation at the right lung base and a moderate size right effusion PLEURA: As above CARDIOVASCULAR: No atherosclerotic calcification present Normal. OSSEOUS STRUCTURES: No significant abnormalities. VISUALIZED UPPER ABDOMEN: Normal. OTHER FINDINGS: None. IMPRESSION: There has been resection of the right lower lobe lung mass. There is now consolidation at the right lung base and a moderate size right effusion CT of chest reviewed by radiologist, shows: Dictator : Isidro Lyons MD Report Date : 02/03/2018 12:46:02 FINDINGS: LUNGS: Clear lungs. Visualized airway clear MEDIASTINUM: Unremarkable thoracic aorta. No aneurysm. Normal sized heart. Main pulmonary artery unremarkable. No vascular congestion. No lymphadenopathy. Minimal calcified aortic plaques PLEURA: Moderate size right pleural effusion and consolidation at the right lung base. Postoperative changes in the right inferior hilum BONES: No fracture. No destructive lesion. UPPER ABDOMEN: Grossly unremarkable. OTHER FINDINGS: None. IMPRESSION: Moderate size right pleural effusion and consolidation at the right lung base. Postoperative changes in the right inferior hilum. Resection of previously seen 3.4 cm right lower lobe lung mass Radiology Orders: 02/03/18 11:18 CHEST PORTABLE [RAD] Stat Carton Making Machine Operator: Radiologist - EKG Interpretation EKG Interpretation (Text): EKG: Ordered, reviewed, and independently interpreted the EKG. Rate : 61 BPM Rhythm : NSR Interpretation : No ST-elevations. No peaked waves. Interpreted by ED Physician: Yes Type: 12 lead EKG - Scribe Statement The provider has reviewed the documentation as recorded by the Scribe Pricila Joey All medical record entries made by the Scribe were at my direction and personally dictated by me. I have reviewed the chart and agree that the record accurately reflects my personal performance of the history, physical exam, medical decision making, and the department course for this patient. I have also personally directed, reviewed, and agree with the discharge instructions and disposition. Disposition/Present on Arrival - Present on Arrival Any Indicators Present on Arrival: No History of DVT/PE: Yes History of Uncontrolled Diabetes: No Urinary Catheter: No History of Decub. Ulcer: No History Surgical Site Infection Following: None - Disposition Have Diagnosis and Disposition been Completed?: Yes Diagnosis: Pleural effusion Disposition: HOME/ ROUTINE Disposition Time: 13:34 Patient Plan: Discharge Condition: GOOD Discharge Instructions (ExitCare): Pleural Effusion (DC), Thoracentesis (DC) Additional Instructions: Please hold ONE DOSE of your Coumadin. Please follow up with your surgeon in 1-2 days and bring the paperwork as well as the imaging with you. Prescriptions: RX: Clindamycin [Cleocin] 300 mg PO BID 5 Days #10 cap Referrals: Sarah Darling MD [Non-Staff] - Follow up with primary Christian Lema MD [Family Provider] - Follow up with primary Forms: [employer] (Telugu)
[2018-02-03 12:13] LABS: BASO # 0.04 K/mm3 (0.0-2.0); BASO % 0.4 % (0.0-3.0); EOS # 0.6 (0.0-0.7); EOS % 6.3 % (1.5-5.0); GRAN # 6.36 (1.4-6.5); GRAN % 70.7 % (50.0-68.0); HEMOGLOBIN 11.4 g/dL (12.0-16.0); LYMPH # 1.4 (1.2-3.4); LYMPH % 15.4 % (22.0-35.0); MEAN CELL VOLUME 92.6 fl (80.0-105.0); MEAN CORPUSCULAR HEMOGLOBIN 30.2 pg (25.0-35.0); MEAN CORPUSCULAR HGB CONC 32.7 g/dl (31.0-37.0); MEAN PLATELET VOLUME 11.1 fl (7.0-11.0); MONO # 0.7 (0.1-0.6); MONO % 7.2 % (1.0-6.0); RBC 3.77 10^6/uL (3.5-6.1); RED CELL DISTRIBUTION WIDTH 14.3 % (11.5-14.5)
[2018-02-03 12:20] LABS: PARTIAL THROMBOPLASTIN TIME 46.8 Seconds (25.1-36.5); PROTHROMBIN TIME 66.7 SECONDS (9.4-12.5)
[2018-02-03 12:34] LABS: ALBUMIN 3.4 g/dL (3.0-4.8); ALT/SGPT 22 U/L (7-56); AST/SGOT 19 U/L (14-36); BLOOD UREA NITROGEN 10 mg/dL (7-21); CALCIUM 8.9 mg/dL (8.4-10.5); GFR NON-AFRICAN AMERICAN > 60
[2018-02-03 12:44] LABS: TROPONIN I < 0.01 ng/mL
[2018-02-03 12:46] LABS: INR 5.6
--- NOTE | 2018-02-03 12:49 | CT ---
Date of service: 02/03/2018 PROCEDURE: CT Chest without contrast HISTORY: s/p VATS procedure w/ serosang drainage COMPARISON: 11/23/2017 TECHNIQUE: Contiguous axial images were obtained through the chest without intravenous contrast enhancement. Sagittal and coronal reconstructions were performed. Radiation dose: Total exam DLP = 168.57 mGy-cm. This CT exam was performed using one or more of the following dose reduction techniques: Automated exposure control, adjustment of the mA and/or kV according to patient size, and/or use of iterative reconstruction technique. FINDINGS: LUNGS: Clear lungs. Visualized airway clear MEDIASTINUM: Unremarkable thoracic aorta. No aneurysm. Normal sized heart. Main pulmonary artery unremarkable. No vascular congestion. No lymphadenopathy. Minimal calcified aortic plaques PLEURA: Moderate size right pleural effusion and consolidation at the right lung base. Postoperative changes in the right inferior hilum BONES: No fracture. No destructive lesion. UPPER ABDOMEN: Grossly unremarkable. OTHER FINDINGS: None. IMPRESSION: Moderate size right pleural effusion and consolidation at the right lung base. Postoperative changes in the right inferior hilum. Resection of previously seen 3.4 cm right lower lobe lung mass
[2018-02-03 12:50] LABS: URINE BILIRUBIN NEGATIVE (NEGATIVE); URINE BLOOD LARGE (NEGATIVE); URINE GLUCOSE (UA) NEGATIVE (NEGATIVE); URINE LEUKOCYTE ESTERASE NEGATIVE Leu/uL (NEGATIVE); URINE PROTEIN TRACE mg/dL (<30 mg/dL); URINE UROBILINOGEN 0.2 E.U./dL (<1 E.U./dL)
[2018-02-03 12:55] LABS: URINE APPEARANCE CLEAR (CLEAR); URINE COLOR YELLOW (YELLOW)
[2018-02-03 12:57] LABS: URINE AMORPHOUS SEDIMENT FEW; URINE BACTERIA MOD (NEG); URINE RBC 20 - 25 /hpf (0-2)
[2018-02-03 12:59] VITALS: RESP 17
--- NOTE | 2018-02-03 13:06 | RAD ---
Date of service: 02/03/2018 HISTORY: sob COMPARISON: 11/24/2017 FINDINGS: LUNGS: There has been resection of the right lower lobe lung mass. There is now consolidation at the right lung base and a moderate size right effusion PLEURA: As above CARDIOVASCULAR: No atherosclerotic calcification present Normal. OSSEOUS STRUCTURES: No significant abnormalities. VISUALIZED UPPER ABDOMEN: Normal. OTHER FINDINGS: None. IMPRESSION: There has been resection of the right lower lobe lung mass. There is now consolidation at the right lung base and a moderate size right effusion
[2018-02-03 13:59] VITALS: BP 120/85; PULSE 72; O2SAT 98
--- NOTE | 2018-02-03 14:57 | CP.PCM.CON ---
History of Present Illness - History of Present Illness History of Present Illness: Thoracic Surgery: Dr. Troncoso reason for consult: post op wound serous drainage HPI: Patient is a 77 y/o female s/p R VATS w/ RL lobectomy approximately 10 days ago at [facility] with surgeon Sarah Darling. Patient reports doing well since surgery. She states she had recent f/u with surgeon on Wednesday in which a suture was removed from inferior port site. As of this morning, she felt a gush of fluid from the wound. She reports the fluid being clear yellow in color. She denies pain to the right chest wall. She is tolerating regular diet. Denies SOB, cough, fever, chills. Review of Systems - Review of Systems All systems: reviewed and no additional remarkable complaints except Review of Systems: unless stated in HPI Past Patient History - Infectious Disease Hx of Infectious Diseases: None - Tetanus Immunizations Tetanus Immunization: Unknown - Past Social History Smoking Status: Former Smoker - CARDIAC Hx Cardiac Disorders: Yes Hx Hypertension: Yes - PULMONARY Hx Respiratory Disorders: Yes Hx Chronic Obstructive Pulmonary Disease (COPD): Yes - NEUROLOGICAL Hx Neurological Disorder: No Hx Paralysis: No - HEENT Hx HEENT Problems: Yes (eyeglasses) - RENAL Hx Chronic Kidney Disease: Yes Hx Kidney Stones: Yes Other/Comment: r urethral stone, 09/15/16 ureteroscopy w/laser lithotripsy/insertion of stent/dr evans - ENDOCRINE/METABOLIC Hx Endocrine Disorders: No - HEMATOLOGICAL/ONCOLOGICAL Hx Blood Disorders: No Hx Blood Transfusions: No Hx Blood Transfusion Reaction: (N/A) - INTEGUMENTARY Hx Dermatological Problems: Yes Other/Comment: 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; clarisa - MUSCULOSKELETAL/RHEUMATOLOGICAL Hx Musculoskeletal Disorders: Yes Hx Arthritis: Yes - GASTROINTESTINAL Hx Gastrointestinal Disorders: Yes Hx Crohn's Disease: Yes - GENITOURINARY/GYNECOLOGICAL Hx Genitourinary Disorders: Yes Hx Hematuria: Yes Other/Comment: ovarian mass - PSYCHIATRIC Hx Psychophysiologic Disorder: No Hx Emotional Abuse: No Hx Physical Abuse: No Hx Substance Use: No - SURGICAL HISTORY Hx Cholecystectomy: Yes Hx Hysterectomy: Yes Other/Comment: right lower lung lobe removal 02/03 - ANESTHESIA Hx Anesthesia: Yes Hx Anesthesia Reactions: No Hx Malignant Hyperthermia: No Meds Home Medications: Home Medication List Medication Instructions Recorded Confirmed Type Clindamycin [Cleocin] 300 mg PO BID 5 Days #10 cap 02/03/18 Rx Allergies/Adverse Reactions: Allergies Allergy/AdvReac Type Severity Reaction Status Date / Time No Known Allergies Allergy Verified 11/23/17 07:42 Physical Exam - Constitutional Appears: Non-toxic, No Acute Distress, Chronically Ill - Head Exam Head Exam: ATRAUMATIC, NORMOCEPHALIC - Eye Exam Eye Exam: EOMI, Normal appearance - ENT Exam ENT Exam: Mucous Membranes Moist - Respiratory Exam Respiratory Exam: NORMAL BREATHING PATTERN. absent: Respiratory Distress Additional comments: R VATS port sites skin clean and dry. Inferior most port site with 4mm opening. No erythema or purulent drainage. - Cardiovascular Exam Cardiovascular Exam: REGULAR RHYTHM. absent: Tachycardia - GI/Abdominal Exam GI & Abdominal Exam: Soft. absent: Tenderness - Rectal Exam Rectal Exam: Deferred - Neurological Exam Neurological exam: Alert, Oriented x3 - Psychiatric Exam Psychiatric exam: Normal Affect, Normal Mood Results - Vital Signs Recent Vital Signs: Last Vital Signs Temp 97.7 F 02/03/18 10:34 Pulse 72 02/03/18 13:57 Resp 17 02/03/18 13:57 BP 120/85 02/03/18 13:57 Pulse Ox 98 02/03/18 14:02 - Labs Result Diagrams: 02/03/18 11:40 02/03/18 11:40 Labs: Laboratory Results - last 24 hr 02/03/18 02/03/18 02/03/18 11:40 11:40 11:40 WBC 9.0 RBC 3.77 Hgb 11.4 L Hct 34.9 L MCV 92.6 MCH 30.2 MCHC 32.7 RDW 14.3 Plt Count 289 MPV 11.1 H Gran % 70.7 H Lymph % (Auto) 15.4 L Marathon % (Auto) 7.2 H Eos % (Auto) 6.3 H Baso % (Auto) 0.4 Gran # 6.36 Lymph # (Auto) 1.4 Marathon # (Auto) 0.7 H Eos # (Auto) 0.6 Baso # (Auto) 0.04 PT 66.7 H INR 5.60 H* APTT 46.8 H Sodium 139 Potassium 3.8 Chloride 107 Carbon Dioxide 27 Anion Gap 8 L BUN 10 Creatinine 0.7 Est GFR ( Amer) > 60 Est GFR (Non-Af Amer) > 60 Random Glucose 95 Calcium 8.9 Magnesium 1.8 Total Bilirubin 0.3 AST 19 ALT 22 Alkaline Phosphatase 88 Troponin I < 0.01 Total Protein 6.7 Albumin 3.4 Globulin 3.4 Albumin/Globulin Ratio 1.0 L Urine Color Urine Appearance Urine pH Ur Specific Vida Urine Protein Urine Glucose (UA) Urine Ketones Urine Blood Urine Nitrate Urine Bilirubin Urine Urobilinogen Ur Leukocyte Esterase Urine RBC Urine WBC Ur Epithelial Cells Amorphous Sediment Urine Bacteria Urine Other 02/03/18 12:35 WBC RBC Hgb Hct MCV MCH MCHC RDW Plt Count MPV Gran % Lymph % (Auto) Marathon % (Auto) Eos % (Auto) Baso % (Auto) Gran # Lymph # (Auto) Marathon # (Auto) Eos # (Auto) Baso # (Auto) PT INR APTT Sodium Potassium Chloride Carbon Dioxide Anion Gap BUN Creatinine Est GFR ( Amer) Est GFR (Non-Af Amer) Random Glucose Calcium Magnesium Total Bilirubin AST ALT Alkaline Phosphatase Troponin I Total Protein Albumin Globulin Albumin/Globulin Ratio Urine Color Yellow Urine Appearance Clear Urine pH 6.0 Ur Specific Vida 1.020 Urine Protein Trace H Urine Glucose (UA) Negative Urine Ketones Negative Urine Blood Large H Urine Nitrate Negative Urine Bilirubin Negative Urine Urobilinogen 0.2 Ur Leukocyte Esterase Negative Urine RBC 20 - 25 Urine WBC 1 - 3 Ur Epithelial Cells 4 - 5 Amorphous Sediment Few Urine Bacteria Mod Urine Other Fiber Assessment & Plan - Assessment and Plan (Free Text) Assessment: 77 y/o female POD10 from R VATS w/ RL lobectomy with serous fluid drainage from wound Plan: -CXR with RLL effusion no pneumo, as expected post op -recommend local wound care with dry gauze dressing. Change as needed. -needs prompt f/u with primary surgeon this week for further evaluation -ER to discuss with primary surgeon @ [place] for further recs, call was placed -no need for acute surgical intervention at this time -d/w Dr. Troncoso who agrees with above recs AKWhite PGY4
--- NOTE | 2018-02-03 16:59 | CARD ---
APPROVED REPORT Date of service: 02/03/2018 EKG Measurement Heart [id number] <Conclusion> Normal sinus rhythm Normal Electrocardiogram
== END 2018-02-03 14:02 | disposition home or self-care (01) ==
LOC: ED 10:27
DX: J90 Pleural effusion, not elsewhere classified (principal); I10 Essential (primary) hypertension; Z79.01 Long term (current) use of anticoagulants; J44.0 Chronic obstructive pulmonary disease with (acute) lower respiratory infection; Z87.891 Personal history of nicotine dependence

== ENCOUNTER 2018-06-30 10:23 | Outpatient (CLI) | payer MEDICARE | END 2018-06-30 10:24 | disposition home or self-care (01) | LOC: RAD 10:23 | DX: Z13.820 Encounter for screening for osteoporosis (principal) ==